=== PATIENT | male | born 1960 | race Caucasian/White ===

== ENCOUNTER 2020-07-24 09:40 | Outpatient (CLI) | payer BC, SELFPAY ==
--- NOTE | ~2020-07-24 | XR_ITS ---
EXAMINATION: XR thoracic spine 3V DATE: 07/24/2020 10:23 INDICATION: Muscle spasm of the back, acute onset TECHNIQUE: AP, lateral and lateral swimmer's views of the thoracic spine were obtained. COMPARISON: None. FINDINGS: There is no fracture, dislocation, or subluxation. The vertebral body heights are normal. T here is mild loss of intervertebral disc space height at multiple levels in the thoracic spine. There are bridging osteophytes at multiple levels in the spine, consistent with diffuse idiopathic skeleta l hyperostosis (DISH). Surgical clips in the right upper quadrant are likely from prior cholecystecto my. IMPRESSION: 1. Mild thoracic spondylosis and diffuse idiopathic skeletal hyperostosis without acute findings. Reviewed, dictated and finalized at location A. RVISOR TRUST ACCOUNTS IMPRESSION: 1. Mild thoracic spondylosis and diffuse idiopathic skeletal hyperostosis witho ut acute findings.
--- NOTE | ~2020-07-24 | XR_ITS ---
EXAMINATION: XR abdomen/kub 1V INDICATION: Unspecified abdominal pain, left flank pain TECHNIQUE: Supine views of the abdomen were obtained on 2 radiographs. COMPARISON: 12/23/2010 FINDINGS: There is lumbar levocurvature. The bowel gas pattern is normal. No dilated loops of bowel a re evident. There is no evidence of free intraperitoneal gas. A phlebolith is noted in the left pelvi s. Surgical clips in the right upper quadrant are likely from prior cholecystectomy. IMPRESSION: 1. Unremarkable abdominal radiographs. Reviewed, dictated and finalized at location A. RNATIONAL NURSE
--- NOTE | ~2020-07-24 | XR_ITS ---
EXAMINATION: XR lumbar spine 2-3V DATE: 07/24/2020 10:24 INDICATION: Muscle spasm of the back TECHNIQUE: Anteroposterior and lateral views of the lumbar spine, and cone-down lateral view of the l umbosacral junction were obtained. COMPARISON: 03/25/2016 FINDINGS: There is lumbar levocurvature. There are 5 mm of stable anterolisthesis of L5 on S1.. There is no fracture. The vertebral body heights are maintained. There is mild loss of intervertebral disc space height throughout the lumbar spine. Small degenerative osteophytes project from the anterior e ndplates of multiple vertebral bodies. Mild facet osteoarthritis is present in the lower lumbar spine . Surgical clips in the right upper quadrant are likely from prior cholecystectomy. IMPRESSION: 1. Mild lumbar spondylosis without acute findings or significant interval change. Reviewed, dictated and finalized at location A. R RESOURCES ENGINEER IMPRESSION: 1. Mild lumbar spondylosis without acute findings or significant interval adonay hood
--- NOTE | ~2020-07-24 | XR_ITS ---
EXAMINATION: XR pelvis 1-2V INDICATION: Muscle spasm of the back and left pelvic pain TECHNIQUE: AP view of the pelvis is obtained. COMPARISON: 12/23/2010 FINDINGS: Bone alignment is normal. There is no fracture. Mild osteoarthritis is noted in the hips. T here are phleboliths of the pelvis. The bowel gas pattern is normal. IMPRESSION: 1. No radiographic correlate for the patient's symptoms. Reviewed, dictated and finalized at location A. TRANSMISSION SPECIALIST
[2020-07-24 10:14] LABS: Add Urine Microscopic? YES; Appearance Urine Clear (Clear); Bilirubin Urine Negative (Negative); Blood Urine Negative (Negative); Color Urine Yellow (Yellow); Glucose Urine UA Negative (Negative); Ketones Urine Negative (Negative); Leukocyte Esterase Ur Negative LEU/UL (NEGATIVE); Mucus Urine Few /lpf; Nitrate Urine Negative (Negative); Protein Urine Negative (Negative); RBC Urine 0-2 /hpf (0-2); Specific Grav Ur 1.015 (1.001-1.035); Squamous Epithelial Cell Urine Rare /hpf (Few); WBC Urine 0-3 /hpf (0-3)
== END 2020-07-24 09:41 | disposition home or self-care (01) ==
LOC: ANHLAB 09:43
PROVIDERS: PCP Internal Medicine; Visit Provider Internal Medicine
DX: M62.830 Muscle spasm of back (principal); R10.9 Unspecified abdominal pain; Z51.81 Encounter for therapeutic drug level monitoring; Z79.899 Other long term (current) drug therapy; M47.817 Spondylosis without myelopathy or radiculopathy, lumbosacral region; M47.815 Spondylosis without myelopathy or radiculopathy, thoracolumbar region
CPT/HCPCS: 72072; 72100; 72170; 74018; 81001

== ENCOUNTER → 2021-02-02 14:30 | Outpatient (REF) | payer BC, SELFPAY | LOC: ANHLAB 14:30 | PROVIDERS: PCP Internal Medicine; Visit Provider Nurse Practitioner | DX: L82.1 Other seborrheic keratosis (principal) | CPT/HCPCS: 88305 ==

== ENCOUNTER 2021-07-16 14:06 | Outpatient (CLI) | payer BC, SELFPAY ==
[2021-07-16 14:48] LABS: Anion Gap 4 mmol/L (8-16); Blood Urea Nitrogen 9 mg/dL (9-20); Calcium 8.6 mg/dL (8.4-10.2); Carbon Dioxide 30 mmol/L (22-30); Chloride 102 mmol/L (98-107); Estimated Glomerular Filt Rate > 60; Glucose 104 mg/dL (65-110); Potassium 4.2 mmol/L (3.4-5.0); Sodium 136 mmol/L (137-145)
== END 2021-07-16 14:07 | disposition home or self-care (01) ==
LOC: ANHLAB 14:08
PROVIDERS: PCP Internal Medicine; Visit Provider Internal Medicine
DX: R60.0 Localized edema (principal); I10 Essential (primary) hypertension
CPT/HCPCS: 36415; 80048

== ENCOUNTER 2021-08-26 07:32 | Outpatient (RCR) | payer BC, SELFPAY ==
[2021-08-19 13:45] VITALS: BMI 46.2
== END 2021-11-02 08:08 | disposition home or self-care (01) ==
LOC: ANHWOC 07:32
PROVIDERS: PCP Internal Medicine; Visit Provider Internal Medicine
DX: L97.909 Non-pressure chronic ulcer of unspecified part of unspecified lower leg with unspecified severity (principal)
CPT/HCPCS: 99211; 99212; G0463

== ENCOUNTER 2021-09-25 08:32 | Outpatient (CLI) | payer BC, SELFPAY ==
--- NOTE | ~2021-09-25 | MR_ITS ---
EXAMINATION: MR lumbar spine wo con DATE: 09/25/2021 09:33 INDICATION: Lumbago. Lumbar radiculopathy. TECHNIQUE: Magnetic resonance imaging (MRI) of the lumbar spine was performed without intravenous con trast. Sequences included sagittal T2-weighted FSE, sagittal T2-weighted FS FSE, sagittal T1-weighted FSE, and axial T2-weighted FSE. COMPARISON: Lumbar spine radiographs 07/24/2020 FINDINGS: There is 5 degrees levocurvature of thoracolumbar spine. There is 3 mm anterolisthesis of L 5 on S1. There is mild chronic anterior wedging of T12 and L1 vertebral bodies associated with Schmor l's nodes. There is mildly decreased disc height at L1-L2, L3-L4, and L4-L5. The distal spinal cord s ignal intensity is normal. The conus medullaris is at L1-L2. The following disc levels are specifical ly discussed: L1-L2: There is a small central extrusion. There is mild bilateral facet joint osteoarthritis. There is no neural foraminal stenosis. There is mild central canal stenosis. L2-L3: There is a left foraminal protrusion. There is mild bilateral facet joint osteoarthritis. Ther e is mild left neural foraminal stenosis. There is no central canal stenosis. L3-L4: The disc is bulging and has an annular fissure. There is mild bilateral facet joint osteoarthr itis. There is mild left neural foraminal stenosis. There is mild central canal stenosis. L4-L5: The disc is bulging and has an annular fissure. There is mild right and moderate left facet veena int osteoarthritis. There is mild bilateral neural foraminal stenosis. There is mild central canal st enosis. L5-S1: The disc is bulging and has an annular fissure. There is severe bilateral facet joint osteoart hritis. There is mild bilateral neural foraminal stenosis. There is mild central canal stenosis. IMPRESSION: 1. Mild lumbar spondylosis. Reviewed, dictated and finalized at location A. IMPRESSION: 1. Mild lumbar spondylosis.
== END 2021-09-25 08:33 | disposition home or self-care (01) ==
PROVIDERS: PCP Internal Medicine; Visit Provider Nurse Practitioner Family
DX: M47.27 Other spondylosis with radiculopathy, lumbosacral region (principal); M48.07 Spinal stenosis, lumbosacral region
CPT/HCPCS: 72148

== ENCOUNTER → 2021-11-19 09:06 | Outpatient (CLI) | payer BC, SELFPAY ==
--- NOTE | ~2021-11-19 | XR_ITS ---
EXAMINATION: XR thoracic spine 3V DATE: 11/19/2021 10:11 INDICATION: Thoracic back pain TECHNIQUE: AP, lateral and lateral swimmer's views of the thoracic spine were obtained. COMPARISON: 07/24/2020 FINDINGS: There are bridging osteophytes at multiple levels in the spine, consistent with diffuse idi opathic skeletal hyperostosis (DISH). There is unchanged mild loss of intervertebral disc space heigh t at multiple levels in the thoracic spine. The vertebral body heights and alignment are maintained. There is no fracture. Surgical clips in the right upper quadrant are likely from prior cholecystectom y. IMPRESSION: 1. Diffuse idiopathic skeletal hyperostosis and mild thoracic spondylosis without acute findings or s ignificant interval change. Reviewed, dictated and finalized at location B. IMPRESSION: 1. Diffuse idiopathic skeletal hyperostosis and mild thoracic spondylosis witho ut acute findings or significant interval change.
== END ==
PROVIDERS: PCP Internal Medicine; Visit Provider Nurse Practitioner Family
DX: M48.14 Ankylosing hyperostosis [Forestier], thoracic region (principal); M47.894 Other spondylosis, thoracic region
CPT/HCPCS: 72072

== ENCOUNTER → 2021-12-02 09:07 | Outpatient (CLI) | payer BC, SELFPAY ==
--- NOTE | ~2021-12-02 | MR_ITS ---
EXAMINATION: MR thoracic spine wo con DATE: 12/02/2021 09:43 INDICATION: Mid to low back pain. TECHNIQUE: Magnetic resonance imaging (MRI) of the thoracic spine was performed without intravenous c ontrast. Sagittal localizer T1-weighted FSE of the cervical spine was obtained. Thoracic spine sequen brandon included sagittal T2-weighted FSE, sagittal T1-weighted FSE, sagittal T2-weighted FS FSE, and axi al T2-weighted FSE. COMPARISON: Thoracic spine radiographs 11/19/2021 FINDINGS: There is 4 degrees dextrocurvature of thoracic spine. There is mild chronic anterior wedgin g of T11-L1 vertebral bodies, likely physiologic. There are Schmorl's nodes at multiple levels. Inter vertebral disc heights are normal. There are bridging endplate osteophytes at multiple levels in the spine, consistent with diffuse idiopathic skeletal hyperostosis (DISH). There is multilevel mild face t joint osteoarthritis. No neural foraminal stenosis. The discs do not extend beyond the endplate mar gins. No central canal stenosis. The spinal cord signal intensity is normal. IMPRESSION: 1. DISH. Reviewed, dictated and finalized at location A. IMPRESSION: 1. DISH.
== END ==
PROVIDERS: PCP Internal Medicine; Visit Provider Nurse Practitioner Family
DX: M47.814 Spondylosis without myelopathy or radiculopathy, thoracic region (principal); M48.14 Ankylosing hyperostosis [Forestier], thoracic region
CPT/HCPCS: 72146

== ENCOUNTER 2022-07-20 11:11 | Outpatient (CLI) | payer BC, SELFPAY ==
--- NOTE | ~2022-07-20 | CT_ITS ---
EXAMINATION: CT abdomen w con DATE: 07/20/2022 11:51 INDICATION: Abdominal bloating, pain, nausea and vomiting. TECHNIQUE: Computed tomography (CT) of the abdomen and pelvis was performed with 100 mL Omnipaque-350 intravenous contrast. Automated exposure control and iterative reconstruction technique were employe d. The dose-length product was 1238.63 mGy-cm. COMPARISON: 12/22/2010 FINDINGS: Minimal dependent atelectasis in the bilateral lower lobes. Heart size is normal. No pericardial or p leural effusion. Small sliding-type hiatal hernia. Cholecystectomy clips at the gallbladder fossa. Li scott, spleen, pancreas, bilateral adrenal glands and left kidney are normal. One-2 mm parenchymal ston e at the lower pole of the right kidney. No hydronephrosis. Normal appendix. No bowel obstruction or abnormal bowel wall thickening. There is subtle mesenteric edema and hyperemia of the right direct ex tending to the small bowel primarily in the left abdomen. There are numerous likely reactive normal-s ized mesenteric lymph nodes which are more notable for number than size. No pathologically enlarged a bdominal lymphadenopathy. Mild thoracolumbar levocurvature with mild to moderate spondylosis. There a re bridging osteophytes at multiple levels in the spine, consistent with diffuse idiopathic skeletal hyperostosis (DISH). IMPRESSION: 1. Nonspecific subtle mesenteric edema, hyperemia of the small bowel vasa recta in the left abdomen a nd suspicion likely reactive mild mesenteric lymphadenopathy suspicious for an enteritis. 2. Small sliding-type hiatal hernia. 2. Nonobstructing 1-2 mm stone at the lower pole of the right kidney. Reviewed, dictated and finalized at location A. CIATE PROFESSOR OF LITERATURE IMPRESSION: 1. Nonspecific subtle mesenteric edema, hyperemia of the small bowel vasa recta in the left abdomen and suspicion likely reactive mild mesenteric lymphadenopa thy suspicious for an enteritis. 2. Small sliding-type hiatal hernia. 2. Nonobstructing 1-2 mm stone at the lower pole of the right kidney.
[2022-07-20 11:39] LABS: Estimated Glomerular Filt Rate > 60
[2022-07-20 11:40] LABS: Alanine Aminotransferase 28 U/L (6-50); Albumin Level 3.6 g/dL (3.5-5.1); Alkaline Phosphatase 93 U/L (38-126); Amylase 53 U/L (30-110); Anion Gap 5 mmol/L (8-16); Aspartate Amino Transferase 24 U/L (17-59); Bilirubin,Total 1.3 mg/dL (0.2-1.3); Blood Urea Nitrogen 12 mg/dL (9-20); Calcium 8.7 mg/dL (8.4-10.2); Carbon Dioxide 30 mmol/L (22-30); Chloride 99 mmol/L (98-107); Estimated Glomerular Filt Rate > 60; Glucose 100 mg/dL (65-110); Lipase 35 U/L (23-300); Potassium 3.9 mmol/L (3.4-5.0); Sodium 134 mmol/L (137-145)
== END 2022-07-20 11:12 | disposition home or self-care (01) ==
PROVIDERS: PCP Internal Medicine; Visit Provider Internal Medicine
DX: R10.9 Unspecified abdominal pain (principal); R11.2 Nausea with vomiting, unspecified; Z87.19 Personal history of other diseases of the digestive system; K44.9 Diaphragmatic hernia without obstruction or gangrene; N20.0 Calculus of kidney; R60.9 Edema, unspecified; R11.10 Vomiting, unspecified
CPT/HCPCS: 36415; 74160; 80053; 82150; 83690; Q9967

== ENCOUNTER 2022-10-14 11:44 | Observation (INO) | payer BC, SELFPAY ==
[2022-10-14] VITALS (27 sets, daily range): BP systolic 115–148; BP diastolic 62–84; PULSE 64–85; RESP 6–19; TEMP 36.3–36.4; O2SAT 94–100; BMI 43.8
--- NOTE | ~2022-10-14 | XR_ITS ---
EXAMINATION: XR chest 1V DATE: 10/14/2022 12:24 INDICATION: Facial weakness. TECHNIQUE: A single frontal view of the chest was obtained. COMPARISON: CT abdomen 07/20/2022 FINDINGS: The chest demonstrates clear lungs without pneumonia, pleural effusion, or pneumothorax. Th e heart size is normal. IMPRESSION: 1. No acute cardiopulmonary disease. Reviewed, dictated and finalized at location A.
--- NOTE | ~2022-10-14 | CT_ITS ---
EXAMINATION: CT brain wo con DATE: 10/14/2022 12:18 INDICATION: Left facial weakness. TECHNIQUE: Computed tomography (CT) of the head was performed without intravenous contrast. The mA wa s adjusted according to patient size. Iterative reconstruction technique was employed. The dose-lengt h product was 605.33 mGy-cm. COMPARISON: None FINDINGS: There are scattered areas of low attenuation in the cerebral white matter. There is no intr acranial hemorrhage, acute infarction, or abnormal intracranial mass lesion. The ventricles are wade l in size. There is mild mucosal thickening in the paranasal sinuses. The orbits are normal. The mast oid air cells are normal. IMPRESSION: 1. Mild nonspecific cerebral white matter disease, which likely represents chronic small vessel ische juan antonio disease. Reviewed, dictated and finalized at location A. IMPRESSION: 1. Mild nonspecific cerebral white matter disease, which likely represents respiratory support technician patti small vessel ischemic disease.
--- NOTE | ~2022-10-14 | MR_ITS ---
EXAMINATION: MR brain/brain stem wo/w con DATE: 10/14/2022 17:36 INDICATION: Left-sided facial droop TECHNIQUE: Magnetic resonance imaging (MRI) of the brain and brainstem was performed without and with the mL Multihance intravenous contrast. Sequences included sagittal and axial T1-weighted SE, axial diffusion-weighted FS SE, axial T2*-weighted GRE, axial T2-weighted FLAIR, and axial T2-weighted FSE. Postcontrast axial and coronal T1-weighted SE was obtained. Apparent diffusion coefficient (ADC) map s were created. COMPARISON: Head CT dated 10/14/2022 FINDINGS: There are no areas of restricted diffusion to suggest acute infarction. No intracranial hemorrhage or abnormal intracranial mass lesion. There are a few scattered areas of nonspecific increased T2-weigh suzette signal intensity in the cerebral white matter, predominantly involving the deep and periventricul ar white matter which is within normal limits for age. There are no intraparenchymal signal abnormali ties seen on the other pulse sequences. The ventricles are symmetric and normal in size. There are no abnormal extra-axial fluid collections. Flow voids are seen in the cerebral arteries on the T2-weigh suzette sequences consistent with their expected patency. Visualized orbits and soft tissues are unremark able. Small mucous retention cyst in the left maxillary and right sphenoid sinuses. There are no area s of abnormal enhancement on the post contrast images. IMPRESSION: 1. Normal for age brain. No acute intracranial process or abnormally enhancing brain lesions. Reviewed, dictated and finalized at location A.
--- NOTE | 2022-10-14 12:01 | ECG_ITS ---
Measurements Intervals [place] Rate: 70 P: 8 MO: 206 QRS: 1 QRSD: 104 T: 39 QT: 399 QTc: 433 Interpretive Statements SINUS RHYTHM NO PREVIOUS ECG AVAILABLE FOR COMPARISON Electronically Signed On 10-14-2022 15:28:27 CDT by Jair Reinoso M.D.
--- NOTE | 2022-10-14 12:06 | ED.NEUROSD ---
HPI - Neuro Symptoms/Deficit General Chief Complaint: Neuro Symptoms/Deficit Stated Complaint: left side facial numbness started last night Time Seen by Provider: 10/14/22 12:02 History of Present Illness HPI Narrative: Patient is a 61-year-old male with a history of hypertension presenting with left-sided facial droop. Patient states that since last night he noticed some numbness on the left side of his mouth. States that it looked like it was drooping slightly while he was shaving last night. This morning he got up and noticed that his smile was not as high on the left. He initially ignored it but it continued so he called his doctor who advised that he come in for evaluation. He denies numbness or weakness anywhere else. No vision changes or speech changes. No difficulty with ambulation. Denies pain anywhere. Related Data Home Medications Medication Instructions Recorded Confirmed acetaminophen 325 mg capsule 325 mg PO Q6H PRN Pain 07/19/19 10/14/22 omega-3 fatty acids 1,000 mg 1,000 mg PO DAILY 07/19/19 10/14/22 capsule (Fish Oil Concentrate) cholecalciferol (vitamin D3) 25 5,000 unit PO DAILY 03/06/20 10/14/22 mcg (1,000 unit) capsule ibuprofen 200 mg tablet 200 mg PO Q6H PRN Pain 03/06/20 10/14/22 omeprazole 20 mg capsule,delayed 20 mg PO DAILY 07/24/20 10/14/22 release bumetanide 1 mg tablet 1 mg PO DAILY 10/14/22 10/14/22 cyclobenzaprine 10 mg tablet 10 mg PO HS 10/14/22 10/14/22 diphenhydramine HCl 25 mg capsule 25 mg PO TID PRN Itching 10/14/22 10/14/22 (Benadryl) gabapentin 300 mg capsule 300 mg PO TID 10/14/22 10/14/22 potassium chloride 10 mEq 10 meq PO DAILY 10/14/22 10/14/22 capsule,extended release telmisartan 80 mg tablet 80 mg PO DAILY 10/14/22 10/14/22 Allergies Allergy/AdvReac Type Severity Reaction Status Date / Time calamine Allergy Intermediate Hives Verified 10/14/22 16:00 clindamycin Allergy Intermediate Hives Verified 10/14/22 16:00 niacin Allergy Unknown Rash Verified 10/14/22 11:44 lisinopril AdvReac Intermediate Hives Verified 10/14/22 11:44 adhesive tape AdvReac Mild Hives Verified 10/14/22 16:00 Review of Systems Review of Systems: All systems reviewed & are unremarkable except as noted in HPI and below PMFSH Past Medical History Medical History Abdominal cramping Acute pancreatitis Back spasm Benign essential hypertension Bloating BMI 39.0-39.9,adult BMI 40.0-44.9, adult Cellulitis of left lower extremity Chronic back pain Colon polyps Dermatographism Eczema Edema Encounter for preventive health examination Encounter for routine adult health examination without abnormal findings Encounter for special screening examination for neoplasm of prostate Family history of prostate cancer FHx: colon cancer Follow up GERD (gastroesophageal reflux disease) History of angiotensin converting enzyme inhibitor (ANKIT-I) allergy History of skin cancer Hx of pancreatitis Intermittent diarrhea Left flank pain Lymphedema Nausea and vomiting Numbness of both lower extremities On shelter drug therapy Onychomycosis LAWRENCE on CPAP Other specified abnormal findings of blood chemistry Pedal edema Periumbilical pain Plantar wart Plantar wart of left foot Positional vertigo Pre-diabetes Rectal bleeding Right elbow tendinitis Skin irritation Skin lesions Skin tag Superficial ulcer of lower extremity Venous insufficiency Vitamin D deficiency Surgical History Surgical History History of cholecystectomy History of removal of cyst Family History Family History Sibling Family history of seizure disorder Family history of rheumatic fever Family history of heart disease in male family member before age 55 Father Carcinoma of colon Malignant neoplasm of prostate Mother Family history of lung cancer Social
[2022-10-14 12:08] LABS: Glucose Point of Care 108 mg/dl (65-105)
[2022-10-14 12:22] LABS: Basophils Percent Auto 0.5 % (0.2-1.2); Eosinophils Absolute Auto 0.2 K/mm3 (0-0.3); Eosinophils Percent Auto 2.6 % (0-4.4); Hematocrit 44.9 % (42.0-52.0); Hemoglobin 15.3 g/dL (14.0-18.0); Immature Granulocyte Absolute 0.03 K/mm3 (0.00-0.031); Immature Granulocyte Percent A 0.4 % (0-0.5); Lymphocytes Absolute Auto 2.49 K/mm3 (0.9-3.2); Mean Corpuscular HGB Conc 34.1 g/dl (32-36); Mean Corpuscular Hemoglobin 30.7 pg (26-34); Mean Corpuscular Volume 90.2 fl (80-100); Mean Platelet Volume 8.9 fl (7.4-10.4); Monocytes Percent Auto 12.8 % (2.6-8.5); Neutrophils Absolute Auto 4.2 K/mm3 (1.3-6.7); Neutrophils Percent Auto 52.7 % (45.5-73.1); Platelet Count Result 313 k/mm3 (150-375); Red Blood Count 4.98 M/mm3 (4.6-6.20); Red Cell Distribution Width 13.2 % (11.5-14.5)
[2022-10-14 12:23] LABS: Alanine Aminotransferase 30 U/L (6-50); Albumin Level 4.2 g/dL (3.5-5.1); Alkaline Phosphatase 93 U/L (38-126); Anion Gap 8 mmol/L (8-16); Aspartate Amino Transferase 28 U/L (17-59); Bilirubin,Total 1.3 mg/dL (0.2-1.3); Blood Urea Nitrogen 14 mg/dL (9-20); Calcium 8.5 mg/dL (8.4-10.2); Carbon Dioxide 28 mmol/L (22-30); Chloride 100 mmol/L (98-107); Estimated CRCL calculation 159 ml/min; Estimated Glomerular Filt Rate > 60; Glucose 112 mg/dL (65-110); Potassium 3.8 mmol/L (3.4-5.0); Sodium 136 mmol/L (137-145)
[2022-10-14 12:26] LABS: INR 1.1; Prothrombin Time 14.6 Seconds (11.1-14.7)
[2022-10-14 12:27] LABS: Partial Thromboplastin Time 27.3 SECONDS (22.3-36.8)
[2022-10-14 12:35] LABS: Troponin I < 0.012 ng/mL (0.000-0.034)
--- NOTE | 2022-10-14 15:34 | ADMGEN ---
This patient, Primo Tinoco, was admitted to [facility] Surg Room 328-01. Patient/family oriented to hospital policies and general routines including ID bracelet, bed and alarms, visiting hours, pain management, procedures, bathroom and other care routines, personal items, smoking policy, room service/diet, and visiting hours. Information on how to activate the Rapid Response Team has been discussed. Patient/Family are encouraged to report perceived risks to care and to ask questions if they do not understand what they are told or what they should do.
--- NOTE | 2022-10-14 18:59 | PM.IMHP ---
H&P: HPI History of Present Illness Date/Time: 10/14/22 18:59 Chief Complaint: neuro symptoms Narrative: this is a 61-year-old male patient with past medical history of hypertension. The patient came to the emergency room today with complaints of left facial droop. Within the patient notices last night when he was shaving. The patient continued to have numbness and tingling to the left side of his face and stated that he had somewhat of a lisp. The patient called his primary care doctor who recommended that the patient come to the emergency room. The patient has no focal weakness. He has had no prior history of any TIAs or CVAs. The patient is not on a daily aspirin. Head CT was read as a following Mild nonspecific cerebral white matter disease, which likely represents chronic small vessel ischemic disease. chest x-ray was read as no acute cardiopulmonary disease. Brain MRI was read as the followingNormal for age brain. No acute intracranial process or abnormally enhancing brain lesions. I spoke with the patient explained to him that office tested been negative so far. 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 The patient is being admitted to observation status on the date of service of 10/14/2022. Review of Systems Review of Systems: All systems reviewed & are unremarkable except as noted in HPI and below Constitutional: Constitutional: Reports as per HPI and Reports no additional constitutional complaints Eyes: Eyes: Reports as per HPI and Reports no additional eye complaints ENT: Reports system reviewed and no additional complaints, except as documented and Reports Normal hearing present Cardiovascular: Cardiovascular: Reports no additional cardiovascular complaints Respiratory: Respiratory: Reports no additional respiratory complaints and Reports no additional respiratory complaints Gastrointestinal: Gastrointestinal: Reports as per HPI and Reports no additional gastrointestinal complaints Musculoskeletal: Musculoskeletal: Reports no additional musculoskeletal complaints Integumentary/Breasts: Skin/Breast: Reports system reviewed and no additional complaints, except as docu and Reports as per HPI Neurologic: Reports system reviewed and no additional complaints, except as documented, Reports as per HPI and Reports Normal hearing present Psychiatric: Psychiatric: Reports no additional psychiatric complaints and Reports as per HPI Endocrine: Endocrine: Reports no additional endocrine complaints Hematologic/Lymphatic: Hematologic/Lymphatic: Reports no additional hematologic/lymphatic complaints Allergic/Immunologic: Allergic/Immunologic: Reports no additional allergic/immunologic complaints [facility] Past Medical History Medical History Abdominal cramping Acute pancreatitis Back spasm Benign essential hypertension Bloating BMI 39.0-39.9,adult BMI 40.0-44.9, adult Cellulitis of left lower extremity Chronic back pain Colon polyps Dermatographism Eczema Edema Encounter for preventive health examination Encounter for routine adult health examination without abnormal findings Encounter for special screening examination for neoplasm of prostate Family history of prostate cancer FHx: colon cancer Follow up GERD (gastroesophageal reflux disease) History of angiotensin converting enzyme inhibitor (ANKIT-I) allergy History of skin cancer Hx of pancreatitis Intermittent diarrhea Left flank pain Lymphedema Nausea and vomiting Numbness of both lower extremities On fpc drug therapy Onychomycosis LAWRENCE on CPAP Other specified abnormal findings of blood chemistry Pedal edema Periumbilical pain Plantar wart Plantar wart of left foot Positional vertigo Pre-diabetes Rectal bleeding Right elbow tendinitis Skin irritation Skin lesions Skin tag Superficial ulcer of lower extremity Venous ins
[2022-10-15] VITALS: PULSE 70
--- NOTE | 2022-10-15 | ECHO_ITS ---
Patient Info Name: Primo Tinoco Age: 61 years : 1960 Gender: Male Ht: 72 in Wt: 320 lbs BSA: 2.78 m2 HR: 77 bpm BP: 115 / 74 mmHg Heart Rhythm: Sinus Rhythm Technical Quality: Poor Exam Date: 10/15/2022 8:59 AM Exam Location: [facility] Patient Status: Inpatient Admit Date: 10/14/2022 Staff Ordering Physician: Lata Cruz NP Rn Medical Inpatient Services: [facility] [place] RDCS Attending Provider: Heri Silvestre MD Referring Physician: Nancy AELX; Exam Type: CA echo doppler color flow Study Info Indications - the neuro symptom Complete two-dimensional, color flow and Doppler transthoracic echocardiogram is performed. Reason for Poor Study: poor echocardiographic windows Summary 1. Complete two-dimensional, color flow and Doppler transthoracic echocardiogram is performed. 2. Left ventricular chamber dimension is normal. 3. Left ventricular systolic function is normal, estimated at 60-65%. 4. There is moderately increased left ventricular wall thickness. 5. The left ventricular diastolic function is grade I diastolic dysfunction. 6. Right ventricular systolic function is normal. 7. There is trace mitral valve regurgitation. 8. There is trace tricuspid valve regurgitation. Left Ventricle Left ventricular chamber dimension is normal. Left ventricular systolic function is normal, estimated at 60-65%. There is moderately increased left ventricular wall thickness. The left ventricular diastolic function is grade I diastolic dysfunction. Right Ventricle Right ventricular chamber dimension is normal. Right ventricular systolic function is normal. Left Atria Left atrial chamber dimension is normal. Right Atria Right atrial chamber dimension is normal. Atrial Septum Interatrial septum is not well visualized. Aortic Valve The aortic valve is not well visualized. There is no aortic valve stenosis. There is no aortic valve regurgitation. Pulmonic Valve The pulmonic valve is not well visualized. Mitral Valve There is trace mitral valve regurgitation. Tricuspid Valve There is trace tricuspid valve regurgitation. Pericardium/Pleural The pericardium appears epicardial fat pad. There is no pericardial effusion. Inferior Vena Cava Inferior vena cava is not well visualized. Aorta The aortic root size at the sinus of Valsalva is normal. Left Ventricular Outflow Tract Name Value Normal LVOT 2D LVOT Diameter 2.0 cm LVOT Doppler LVOT Peak Gradient 8 mmHg LVOT Mean Gradient 5 mmHg LVOT VTI 31 cm LVOT VTI/AV VTI Ratio 1.2 LVOT Stroke Volume 94 ml LVOT CO 7.5 l/min LVOT CI 2.7 l/min/m2 Pulmonic Valve Name Value Normal RVOT Doppler RVOT Peak Gradient 4 mmHg PV Doppler -----
[2022-10-15 04:00] VITALS: PULSE 77
[2022-10-15 06:00] VITALS: BP 117/71; PULSE 69; RESP 18; TEMP 36.3; O2SAT 99
[2022-10-15] MEDS: valACYclovir HCL 500 MG TABLET 1000 MG PO ×2 (06:02→13:11)
[2022-10-15 06:40] LABS: Basophils Percent Auto 0.4 % (0.2-1.2); Eosinophils Absolute Auto 0.1 K/mm3 (0-0.3); Eosinophils Percent Auto 1.8 % (0-4.4); Hematocrit 45.6 % (42.0-52.0); Hemoglobin 15.2 g/dL (14.0-18.0); Immature Granulocyte Absolute 0.02 K/mm3 (0.00-0.031); Immature Granulocyte Percent A 0.3 % (0-0.5); Lymphocytes Absolute Auto 2.44 K/mm3 (0.9-3.2); Lymphocytes Percent Auto 30.9 % (18.3-44.2); Mean Corpuscular HGB Conc 33.3 g/dl (32-36); Mean Corpuscular Hemoglobin 30.3 pg (26-34); Mean Corpuscular Volume 90.8 fl (80-100); Mean Platelet Volume 8.7 fl (7.4-10.4); Monocytes Absolute Auto 0.9 K/mm3 (0.1-0.6); Monocytes Percent Auto 11.5 % (2.6-8.5); Neutrophils Absolute Auto 4.4 K/mm3 (1.3-6.7); Neutrophils Percent Auto 55.1 % (45.5-73.1); Platelet Count Result 299 k/mm3 (150-375); Red Blood Count 5.02 M/mm3 (4.6-6.20); Red Cell Distribution Width 13.1 % (11.5-14.5); White Blood Count 7.9 K/mm3 (4.5-10.0)
[2022-10-15 06:46] LABS: Alanine Aminotransferase 30 U/L (6-50); Alkaline Phosphatase 89 U/L (38-126); Anion Gap 5 mmol/L (8-16); Aspartate Amino Transferase 29 U/L (17-59); Bilirubin,Total 1.5 mg/dL (0.2-1.3); Blood Urea Nitrogen 13 mg/dL (9-20); Calcium 8.6 mg/dL (8.4-10.2); Carbon Dioxide 32 mmol/L (22-30); Chloride 101 mmol/L (98-107); Estimated CRCL calculation 159 ml/min; Estimated Glomerular Filt Rate > 60; Glucose 91 mg/dL (65-110); Magnesium 2.3 mg/dL (1.6-2.3); Potassium 4.1 mmol/L (3.4-5.0); Sodium 138 mmol/L (137-145)
[2022-10-15 06:53] LABS: Lactic Acid Reflex 1.3 mmol/L (0.7-2.0)
[2022-10-15 07:55] LABS: Free T4 Free Thyroxine Reflex 1.16 ng/dL (0.78-2.19)
[2022-10-15 08:00] VITALS: PULSE 89
--- NOTE | 2022-10-15 09:24 | WPDNEURCNPN ---
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 Consult date: 10/15/22 HPI: Prmio Tinoco is a 61 year old male admitted to the hospital through the emergency room for the complaints of left-sided facial numbness of [id number] duration . Patient has ongoing history of hypertension and he reported that his face was numb on the left side and also drooping though initially ignored but his doctor advised him to come to the emergency room. Patient has been taking particularly gabapentin 300 mg 3 times a day in addition to the antihypertensive medication. Patient is also reportedly allergic to multiple medication as reviewed. He gave no history of alcohol intake or smoking. His initial vital signs in the emergency room were stable, CBC and BMP were not significant and initial CT scan of the head was negative psoas the x-ray of the chest he was admitted to the hospital for the possibility of the brainstem involvement versus the left sided facial palsy. Subsequent to the hospital admission he had an MRI of the brain which is negative for the stroke or any space-occupying lesion. ON LICENSE OF [facility] Past Medical History Medical History (Updated 10/15/22 @ 10:09 by Prieto Alexis MD) Abdominal cramping Acute pancreatitis Back spasm Benign essential hypertension Bloating BMI 39.0-39.9,adult BMI 40.0-44.9, adult Cellulitis of left lower extremity Chronic back pain Colon polyps Dermatographism Eczema Edema Encounter for preventive health examination Encounter for routine adult health examination without abnormal findings Encounter for special screening examination for neoplasm of prostate Family history of prostate cancer FHx: colon cancer Follow up GERD (gastroesophageal reflux disease) History of angiotensin converting enzyme inhibitor (ANKIT-I) allergy History of skin cancer Hx of pancreatitis Intermittent diarrhea Left flank pain Lymphedema Nausea and vomiting Numbness of both lower extremities On half-way drug therapy Onychomycosis LAWRENCE on CPAP Other specified abnormal findings of blood chemistry Pedal edema Periumbilical pain Plantar wart Plantar wart of left foot Positional vertigo Pre-diabetes Rectal bleeding Right elbow tendinitis Skin irritation Skin lesions Skin tag Superficial ulcer of lower extremity Venous insufficiency Vitamin D deficiency Surgical History Surgical History (Updated 10/15/22 @ 02:47 by Lata Cruz NP) H/O arthroscopic knee surgery H/O colonoscopy with polypectomy H/O local excision of skin lesion History of cholecystectomy History of removal of cyst History of tonsillectomy and adenoidectomy Family History Family History Sibling Family history of seizure disorder Family history of rheumatic fever Family history of heart disease in male family member before age 55 Father Carcinoma of colon Malignant neoplasm of prostate Mother Family history of lung cancer Social History Social History (Updated 10/15/22 @ 02:48 by Lata Cruz NP) Social History: the patient lives with his brother. He is single and has not had any children. The patient worked for the [employer]. Code status full code Smoking status: Never smoker Second hand tobacco smoke exposure: No Alcohol intake: never Substance use: never Lack of Transportation: No Lack of Food: Never True Current Housing: I Have Housing Concerned About Future Housing: No Difficulty Paying Gas/Electric Bills: No Difficulty Paying for Meds: No Currently Unemployed: No Education: Master's Degree or Hi
[2022-10-15 09:41] LABS: Total Triiodothyronine (T3) 2.14 NG/ML (0.97-1.69)
[2022-10-15] MEDS: CHOLECALCIFEROL 1,000 UNITS TABLET 5000 UNITS PO (09:43)
[2022-10-15] MEDS: predniSONE 20 MG TABLET 60 MG PO (09:43)
[2022-10-15] MEDS: ASPIRIN 81 MG CHEWABLE TABLET PO (09:43)
[2022-10-15] MEDS: BUMETANIDE 1 MG TABLET PO (09:43)
[2022-10-15] MEDS: POTASSIUM CHLORIDE 10 MEQ TABLET.ER PO (09:43)
[2022-10-15] MEDS: PANTOPRAZOLE 40 MG TABLET PO (09:44)
[2022-10-15] MEDS: TELMISARTAN 40 MG TABLET 80 MG PO (09:44)
[2022-10-15] MEDS: GABAPENTIN 300 MG CAPSULE PO ×2 (09:44→13:11)
[2022-10-15] MEDS: OMEGA 3 POLYUNSAT FATTY ACIDS 1 GM CAP PO (09:44)
--- NOTE | 2022-10-15 10:00 | PM.DS ---
DS: Admitting Diagnosis Discharge Date 10/15/22 1000 Admitting Diagnosis [place] Palsy DS: Discharge Diagnosis Discharge Diagnosis (1) Facial droop: Code(s): R29.810 - Facial weakness Status: Acute Assessment and Plan: Normal for age brain. No acute intracranial process or abnormally enhancing brain lesions. I discussed treatment for Og's palsy. I did order acyclovir and prednisone for the patient. Neurology has been consulted. The patient has no focal weakness. Continue prednisone for 5 days (2) BPH without urinary obstruction: Code(s): N40.0 - Benign prostatic hyperplasia without lower urinary tract symptoms Status: Acute Assessment and Plan: Continue with home medications. (3) Benign essential hypertension: Code(s): I10 - Essential (primary) hypertension Status: Acute Assessment and Plan: Continue with telmisartan and bumex (4) GERD (gastroesophageal reflux disease): Qualifiers: Esophagitis presence: without esophagitis Qualified Code(s): K21.9 - Gastro-esophageal reflux disease without esophagitis Code(s): K21.9 - Gastro-esophageal reflux disease without esophagitis Status: Acute Assessment and Plan: continue with omeprazole DS: Summary Hospital Course Hospital Course: Patient is a 61-year-old male with a past medical history of hypertension congestive heart failure, peripheral neuropathy who presented to the ED at [facility] with complaints of left facial droop. CT of the head was performed and showed mild nonspecific cerebral white matter disease which likely represents chronic small vessel ischemic disease. Chest x-ray was read as no acute cardiopulmonary disease. MRI of the brain shows normal aging brain. neurology was consulted and seen the patient. Everything is negative in appears to be Og's palsy at this time. Prednisone was initiated 60 mg for 7 days. Currently patient is stable. He still does have the left facial droop however his eye does never opening closed with no visual changes. He feels fine otherwise. He denies any her chest pain, shortness a breath, fevers, sweats, chills, nausea, vomiting, abdominal pain, constipation or diarrhea. Patient stable for discharge per labs and vital signs. Patient will be discharged home. Status at Discharge Functional status at discharge: independent ambulation Overall status at discharge: patient is progressing back to baseline Time Spent with Patient Time attestation: Total time spent providing and/or coordinating discharge services:48 minutes Time spent: Greater than 30 minutes Specific discharge activities: Diagnostic testing, chart review, developing a treatment plan, education, care coordination documentation, physical exam, result review Exam Narrative: General: well-nourished, well-appearing 75-year-old female, sitting up in bed, comfortable, NARD Neuro: awake, alert and oriented x4, speech clear, no focal neuro deficits noted HEENMT: normocephalic, atraumatic, EOMI, sclerae anicteric, moist oral mucosa, left facial droop, and left eye paralysis Respiratory: Clear to auscultation bilaterally without crackles, rhonchi or wheezes, nonlabored breathing Cardio: regular rate, regular rhythm with S1-S2 Abdomen: nondistended, normoactive bowel sounds, soft, nontender to palpation Extremities: no edema, erythema, or tenderness to palpation, DP pulses 2+ bilaterally Skin: no rashes or lesions, warm and dry Psych: appropriate mood and affect, judgment and insight intact DS: Data Data Completed and Pending Labs on day of discharge: Labs from last 24 hours 10/15/22 06:07 WBC 7.9 RBC 5.02 Hgb 15.2 Hct 45.6 MCV 90.8 MCH 30.3 MCHC 33.3 RDW 13.1 Plt Count 299 MPV 8.7 Immature Gran % (Auto) 0.3 Neut % (Auto) 55.1 Lymph % (Auto) 30.9 Lawrence % (Auto) 11.5 H Eos % (Auto) 1.8 Baso % (Auto) 0.4 Lymph # (Auto) 2.44 Lawrence # (Auto) 0
[2022-10-15 12:00] VITALS: PULSE 84
== END 2022-10-15 15:10 | disposition home or self-care (01) ==
LOC: ANHED 12:11 → ANH3MEDSUR 14:57
PROVIDERS: Emergency Medicine; Nurse Practitioner; Admitting Provider Chiropractor; Emergency Provider Emergency Medicine; PCP Internal Medicine; Visit Provider Chiropractor
DX: R29.810 Facial weakness (principal); R20.0 Anesthesia of skin; N40.0 Benign prostatic hyperplasia without lower urinary tract symptoms; I11.0 Hypertensive heart disease with heart failure; I50.9 Heart failure, unspecified; K21.9 Gastro-esophageal reflux disease without esophagitis; G89.29 Other chronic pain; M54.9 Dorsalgia, unspecified; G47.33 Obstructive sleep apnea (adult) (pediatric); E55.9 Vitamin D deficiency, unspecified; R90.82 White matter disease, unspecified; Z99.89 Dependence on other enabling machines and devices; Z79.1 Long term (current) use of non-steroidal anti-inflammatories (NSAID); Z79.899 Other long term (current) drug therapy
CPT/HCPCS: 36415; 70450; 70553; 71045; 80053; 82948; 83605; 83735; 84439; 84443; 84480; 84484; 85025; 85610; 85730; 93005; 93306; 99285; A9270; A9577; G0378; J7512

== ENCOUNTER 2023-06-29 09:12 | Outpatient (CLI) | payer BC, SELFPAY ==
--- NOTE | ~2023-06-29 | XR_ITS ---
Cervical Spine: AP, lateral, open-mouth views, with flexion, extension positioning Clinical History: Pain Findings: The normal lordotic curve is maintained. The vertebral bodies and posterior elements appea r intact. There is moderate degenerative disc narrowing at C5-C6 and C6-C7.. Pre-vertebral soft tissu es are unremarkable. Impression: Degenerative disc change at C5-C6 and C6-C7, as above. Reviewed, dictated and finalized at location M. MACY COORDINATOR Impression: Degenerative disc change at C5-C6 and C6-C7, as above.
== END 2023-06-29 09:13 | disposition home or self-care (01) ==
PROVIDERS: PCP Internal Medicine; Visit Provider Internal Medicine
DX: M53.82 Other specified dorsopathies, cervical region (principal); M50.322 Other cervical disc degeneration at C5-C6 level; M50.323 Other cervical disc degeneration at C6-C7 level
CPT/HCPCS: 72040

== ENCOUNTER 2023-07-15 12:43 | Outpatient (CLI) | payer BC, SELFPAY | END 2023-07-15 12:44 | disposition home or self-care (01) | PROVIDERS: PCP Internal Medicine; Visit Provider Internal Medicine | DX: H90.3 Sensorineural hearing loss, bilateral (principal) | CPT/HCPCS: 92557; 92567 ==

== ENCOUNTER 2023-11-08 15:25 | Outpatient (CLI) | payer BC, SELFPAY ==
--- NOTE | ~2023-11-08 | CT_ITS ---
CT abdomen pelvis w con Ordering provider: Logan Nielson MD History: 62 years Male with . R10.9 - Unspecified abdominal pain . Comparison: July 20, 2022 Technique: CT abdomen and pelvis with IV and without oral contrast. Automated exposure control and it erative reconstruction technique were employed. The dose-length product was 1713.66 mGy-cm. 100 mL Om nipaque 350 was given IV. Findings: VISUALIZED LOWER CHEST: Dependent atelectatic changes. UPPER ABDOMINAL ORGANS: Liver: Mild fat infiltration. Gallbladder: Status post cholecystectomy. Spleen: Normal. Stomach/duodenum: Small sliding hiatus hernia. Pancreas: Normal. Adrenals: Normal. Kidneys: Normal. PELVIC ORGANS: The bladder is normal. BOWEL AND MESENTERY: Colon: No evidence of diverticulitis. Normal appendix. Small Bowel: Normal. No obstruction. Peritoneum/mesentery: No free air or free fluid. No mesenteric lymphadenopathy. RETROPERITONEUM: Mild atheromatous disease of the abdominal aorta. No retroperitoneal lymphadenopat hy. MUSCULOSKELETAL: Superficial soft tissues: The superficial soft tissues are normal. Bones: Age appropriate degenerative changes of the spine. Bilateral sacroiliitis more prominent on th e left side. IMPRESSION: 1. No evidence of obstruction, diverticulitis or appendicitis. 2. Small sliding hiatus hernia. 3. Mild fat infiltration of the liver. Reviewed, dictated and finalized at location A.
[2023-11-08 16:42] LABS: Basophils Percent Auto 0.5 % (0.2-1.2); Eosinophils Absolute Auto 0.3 K/mm3 (0-0.3); Eosinophils Percent Auto 3.4 % (0-4.4); Hematocrit 43.2 % (42.0-52.0); Hemoglobin 14.7 g/dL (14.0-18.0); Immature Granulocyte Absolute 0.03 K/mm3 (0.00-0.031); Immature Granulocyte Percent A 0.4 % (0-0.5); Lymphocytes Absolute Auto 2.39 K/mm3 (0.9-3.2); Lymphocytes Percent Auto 29.9 % (18.3-44.2); Mean Corpuscular Hemoglobin 31.3 pg (26-34); Mean Corpuscular Volume 92.1 fl (80-100); Mean Platelet Volume 9.1 fl (7.4-10.4); Monocytes Percent Auto 11.9 % (2.6-8.5); Neutrophils Absolute Auto 4.3 K/mm3 (1.3-6.7); Neutrophils Percent Auto 53.9 % (45.5-73.1); Platelet Count Result 298 k/mm3 (150-375); Red Blood Count 4.69 M/mm3 (4.6-6.20); Red Cell Distribution Width 13.2 % (11.5-14.5)
[2023-11-08 16:51] LABS: Anion Gap 8 mmol/L (4-12); Blood Urea Nitrogen 11 mg/dL (9-20); Calcium 8.8 mg/dL (8.4-10.2); Carbon Dioxide 29 mmol/L (22-30); Chloride 99 mmol/L (98-107); Estimated Glomerular Filt Rate > 60; Glucose 106 mg/dL (65-110); Sodium 136 mmol/L (137-145)
== END 2023-11-08 15:26 | disposition home or self-care (01) ==
PROVIDERS: PCP Internal Medicine; Visit Provider Internal Medicine
DX: R10.819 Abdominal tenderness, unspecified site (principal); K44.9 Diaphragmatic hernia without obstruction or gangrene; K76.0 Fatty (change of) liver, not elsewhere classified
CPT/HCPCS: 36415; 74177; 80048; 85025; Q9967

== ENCOUNTER 2024-01-17 00:11 | Day surgery (SDC) | payer OTHER, SELFPAY ==
[2023-12-28 09:55] VITALS: BMI 43.4
[2024-01-17 10:33] VITALS: BP 117/79; PULSE 84; RESP 16; TEMP 36.6; O2SAT 84
[2024-01-17] MEDS: LACTATED RINGERS 1,000 ML 150 ML IV CONT (10:41)
--- NOTE | 2024-01-17 11:12 | PM.IMHP ---
H&P: HPI History of Present Illness Date/Time: 01/17/24 11:12 Chief Complaint: Family history of colon cancer Narrative: this is a 63-year-old man who presents for colonoscopy. His last colonoscopy was about 6 or 7 years ago. He has a family history of colon cancer in his father who was diagnosed in his 50s. He denies any hematochezia or melena. Review of Systems Review of Systems: All systems reviewed & are unremarkable except as noted in HPI and below Constitutional: Constitutional: Denies chills, Denies fever(s), Denies headache(s) and Denies weight loss Eyes: Eyes: Denies change in vision ENT: Denies dizziness, Denies headache(s), Denies neck mass and Denies throat swelling Cardiovascular: Cardiovascular: Denies chest pain, Denies lightheadedness and Denies dyspnea Respiratory: Respiratory: Denies cough, Denies dyspnea and Denies wheezing Gastrointestinal: Gastrointestinal: Denies abdominal pain, Denies change in bowel habits, Denies nausea and Denies vomiting Genitourinary: Genitourinary: Denies hematuria and Denies dysuria Musculoskeletal: Musculoskeletal: Reports as per HPI Integumentary/Breasts: Skin/Breast: Reports as per HPI Neurologic: Denies dizziness and Denies headache(s) Allergic/Immunologic: Allergic/Immunologic: Denies throat swelling and Denies wheezing PMFSH Past Medical History Medical History Abdominal cramping Acute pancreatitis Back spasm Og's palsy Benign essential hypertension Bloating BMI 39.0-39.9,adult BMI 40.0-44.9, adult Cellulitis of left lower extremity Cervicalgia Chronic back pain Colon polyps Dermatographism Eczema Edema Encounter for preventive health examination Encounter for routine adult health examination without abnormal findings Encounter for special screening examination for neoplasm of prostate Family history of prostate cancer FHx: colon cancer Follow up GERD (gastroesophageal reflux disease) History of angiotensin converting enzyme inhibitor (ANKIT-I) allergy History of skin cancer Hx of pancreatitis Intermittent diarrhea Left flank pain Lymphedema Nausea and vomiting Numbness of both lower extremities On nursing home drug therapy Onychomycosis LAWRENCE on CPAP Other specified abnormal findings of blood chemistry Pedal edema Periumbilical pain Plantar wart Plantar wart of left foot Positional vertigo Pre-diabetes Rectal bleeding Right elbow tendinitis Skin irritation Skin lesions Skin tag Superficial ulcer of lower extremity Venous insufficiency Vitamin D deficiency Surgical History Surgical History H/O arthroscopic knee surgery H/O colonoscopy with polypectomy H/O local excision of skin lesion History of cholecystectomy History of removal of cyst History of tonsillectomy and adenoidectomy Family History Family History Sibling Family history of seizure disorder Family history of rheumatic fever Family history of heart disease in male family member before age 55 Father Carcinoma of colon Malignant neoplasm of prostate Mother Family history of lung cancer Social History Social History Social History: the patient lives with his brother. He is single and has not had any children. The patient worked for the [employer]. Code status full code Smoking status: Never smoker Second hand tobacco smoke exposure: No Alcohol intake: current Substance use: never Substance use type: does not use Lack of Transportation: No Lack of Food: Never True Current Housing: I Have Housing Concerned About Future Housing: No Difficulty Paying Gas/Electric Bills: No Difficulty Paying for Meds: No Currently Unemployed: No Education: Master's Degree or Higher Difficulty w/ Childcare or Family Care: No Living arrang
--- NOTE | 2024-01-17 11:14 | WPDANESEPPF ---
Anes - Initial Pre Proc Eval Procedure: Operation Date: 01/17/24 11:30 Proposed Procedures p Screening Colonoscopy - Darnell Arora DO Date/Time: 01/17/24 11:14 Surgeon: Darnell Arora DO Pre Op Diagnosis: Neoplasm screening Patient Data Age: 63 Gender: M Height: 1.83 m Weight: 145.9 kg Last Vital Signs Temp 97.9 F 01/17/24 10:33 Pulse 84 01/17/24 10:33 Resp 16 01/17/24 10:33 BP 117/79 01/17/24 10:33 Pulse Ox 84 L 01/17/24 10:33 O2 Del Method Room Air 01/17/24 10:33 Allergies Allergy/AdvReac Type Severity Reaction Status Date / Time adhesive tape Allergy Intermediate Redness of Verified 01/17/24 10:29 Skin calamine Allergy Intermediate Hives Verified 01/17/24 10:29 clindamycin Allergy Intermediate Hives Verified 01/17/24 10:29 lisinopril Allergy Intermediate Hives Verified 01/17/24 10:29 niacin Allergy Intermediate Rash Verified 01/17/24 10:29 Home Medications Medication Instructions Recorded Confirmed Type acetaminophen 325 mg capsule 325 mg PO Q6H PRN Pain 07/19/19 01/17/24 History omega-3 fatty acids 1,000 mg 1,000 mg PO DAILY 07/19/19 01/17/24 History capsule (Fish Oil Concentrate) cholecalciferol (vitamin D3) 25 5,000 unit PO DAILY 03/06/20 01/17/24 History mcg (1,000 unit) capsule ibuprofen 200 mg tablet 200 mg PO Q6H PRN Pain 03/06/20 01/17/24 History omeprazole 20 mg capsule,delayed 20 mg PO DAILY 07/24/20 01/17/24 History release Probiotic 2 gummy BYMOUTH DAILY 02/07/23 01/17/24 History bumetanide 1 mg tablet See Rx Instructions .Route 12/27/23 01/17/24 Rx .COMPLEX #90 tabs cyclobenzaprine 10 mg tablet See Rx Instructions .Route 12/27/23 01/17/24 Rx .COMPLEX #30 tabs gabapentin 300 mg capsule See Rx Instructions .Route 12/27/23 01/17/24 Rx .COMPLEX #270 caps potassium chloride 10 mEq See Rx Instructions .Route 12/27/23 01/17/24 Rx capsule,extended release .COMPLEX #90 caps telmisartan 80 mg tablet See Rx Instructions .Route 12/27/23 01/17/24 Rx .COMPLEX #90 tabs ondansetron HCl 4 mg tablet 4 mg PO Q6H PRN Nausea #4 tabs 12/28/23 Rx Patient hx anesthesia problems: none Family hx anesthesia problems: none Results Review: All pre-operative results and documents have been reviewed as part of the pre-operative evaluation. [facility] Past Medical History Medical History Abdominal cramping Acute pancreatitis Back spasm Og's palsy Benign essential hypertension Bloating BMI 39.0-39.9,adult BMI 40.0-44.9, adult Cellulitis of left lower extremity Cervicalgia Chronic back pain Colon polyps Dermatographism Eczema Edema Encounter for preventive health examination Encounter for routine adult health examination without abnormal findings Encounter for special screening examination for neoplasm of prostate Family history of prostate cancer FHx: colon cancer Follow up GERD (gastroesophageal reflux disease) History of angiotensin converting enzyme inhibitor (ANKIT-I) allergy History of skin cancer Hx of pancreatitis Intermittent diarrhea Left flank pain Lymphedema Nausea and vomiting Numbness of both lower extremities 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 Onychomycosis LAWRENCE on CPAP Other specified abnormal findings of blood chemistry Pedal edema Periumbilical pain Plantar wart Plantar wart of left foot Positional vertigo Pre-diabetes Rectal bleeding Right elbow tendinitis Skin irritation Skin lesions Skin tag Superficial ulcer of lower extremity Venous insufficiency Vitamin D deficiency Surgical History Surgical History H/O arthroscopic knee surgery H/O colonoscopy with polypectomy H/O local excision of skin lesion History of cholecystectomy History of removal of cyst History of tonsillectomy and adenoidectomy Family History Family History Sibling Family history of
[2024-01-17 12:25] VITALS: BP 92/62; PULSE 75; RESP 21; O2SAT 100
[2024-01-17 12:35] VITALS: BP 109/67; PULSE 71; RESP 21; O2SAT 100
[2024-01-17 12:45] VITALS: BP 109/68; PULSE 68; RESP 17; O2SAT 98
== END 2024-01-17 12:55 | disposition home or self-care (01) ==
PROVIDERS: PCP Internal Medicine; Visit Provider Surgery
PROC: 0DJD8ZZ Inspection of Lower Intestinal Tract, Via Natural or Artificial Opening Endoscopic (ICD-10-PCS; CPT 45378; principal; 2024-01-17 11:30)
DX: Z12.11 Encounter for screening for malignant neoplasm of colon (principal); K57.30 Diverticulosis of large intestine without perforation or abscess without bleeding; Z80.0 Family history of malignant neoplasm of digestive organs; I10 Essential (primary) hypertension; K21.9 Gastro-esophageal reflux disease without esophagitis; G47.33 Obstructive sleep apnea (adult) (pediatric); E55.9 Vitamin D deficiency, unspecified
CPT/HCPCS: G0105; J2704; J7120

== ENCOUNTER 2024-06-25 15:36 | Outpatient (CLI) | payer OTHER, SELFPAY ==
--- NOTE | ~2024-06-25 | XR_ITS ---
Clinical Indication: Cough PA and lateral views of the chest: Comparison: 10/14/2022 Findings: The lungs are clear, without evidence of focal consolidation or pleural effusion. Cardiome diastinal silhouette is enlarged. Bones and soft tissues are unremarkable. Impression: Clear lungs. Cardiomegaly. Reviewed, dictated and finalized at location . BW ARCHITECT Impression: Clear lungs. Cardiomegaly.
--- OUTSIDE RECORDS SUMMARY | 2024-06-25 15:41 | XMS_ITS | Clinical Summary ---
Author Organization [facility] Address [address] [place] [address] Care Team Providers Care Home Decorator Name Role Phone Logan Nielson MD Primary Care Provider [phone] Medications LISINOPRIL 40 MG tabletIndicatio ns:Hypertension TAKE ONE TABLET EVERY MORNING. 30 tablet 5 11/22/2018 Active GABAPENTIN 300 MG capsuleIndicati ons:Peripheral neuropathy TAKE 1 CAPSULE BY MOUTH THREE TIMES A DAY 90 capsule 5 11/22/2018 Active Social History Tobacco Use Types Packs/Day Years Used Date Smoking Tobacco: Never Assessed Sex and Gender Information Value Date Recorded Sex Assigned at Not on file Legal Sex Male 11:15 PM FOOD SAFETY TECHNICIAN Gender Identity Not on file Sexual Orientation Not on file Last Filed Vital Signs Vital Sign Reading Time Taken Comments Blood Pressure 124/88 06/01/2018 10:05 AM FOOD SAFETY TECHNICIAN Pulse 64 06/01/2018 10:05 AM FOOD SAFETY TECHNICIAN Temperature - - Respiratory Rate - - Oxygen Saturation - - Inhaled Oxygen Concentration - - Weight 147 kg (324 lb) 06/01/2018 10:05 AM FOOD SAFETY TECHNICIAN Height 182.9 cm (6') 06/01/2018 10:05 AM FOOD SAFETY TECHNICIAN Body Mass Index 43.94 06/01/2018 10:05 AM FOOD SAFETY TECHNICIAN Plan of Treatment Health Maintenance Due Date Last Done Comments Colorectal Cancer Screening Colonoscopy (10 Years) 1958 Hepatitis C 1976 Pneumococcal Vaccine: 65+ Years (1 of 1 - PCV) 11/19/2023 COVID-19 Vaccine (2023-25 season) 2024 03/11/2022, 04/28/2021, 08/06/2020, Additional history exists Influenza Adult (#1) 2024 03/11/2022, 04/03/2021, 04/03/2020, Additional history exists DTaP, Tdap and Td Vaccines (2 - Td or Tdap) 06/01/2028 06/01/2018 RSV Immunization or 60+ Years (1 - 1-dose 75+ series) 2033 Zoster Vaccines Completed 07/15/2021, 05/15/2021 Meningococcal B Vaccine Aged Out No l onger eligible based on patient's age to complete this topic Meningococcal Vaccine Aged Out No kaylin thais eligible based on patient's age to complete this topic Pneumococcal Vaccine: Pediatrics (0 to 5 Years) and At-Risk Patients (6 to 64 Years) Aged Out No longer eligible based on patient's age to complete this topic RSV Immunizations Under 20 Months Aged Out No longer eligible based on patient's age to complete this topic Procedures Procedure Name Priority Date/Time Associated Diagnosis Comments COLONOSCOPY Routine FOOD SAFETY TECHNICIAN from Last 3 Months or Most Recently Relevant to Health Maintenance Results * Colonoscopy ( FOOD SAFETY TECHNICIAN) Narrative TOUCHWORKS TO EPIC CONVERSION - FOOD SAFETY TECHNICIAN Documented hx of procedure Procedure Note , Generic ConversionMD - 08/03/2018 Documented hx of procedure us Generic Conversion Md AIKEN GI PROCEDURE ORDERABLES Final Result TOUCHWORKS TO EPIC CONVERSION from Last 3 Months or Most Recently Relevant to Health Maintenance Insurance [facility] Care Teams Home Decorator Relationship Specialty Start Date End Date Logan Nielson MD [address] - [facility] [address] [place] [address] PCP - General INTERNAL MEDICINE 06/16/22
--- OUTSIDE RECORDS SUMMARY | 2024-06-25 15:41 | XMS_ITS | Clinical Summary ---
Author Organization [facility] Address [address], [facility] [address] [place] [address] Phone Care Team Providers Care Bow Stapler Name Role Phone Logan Nielson MD Primary Care Provider [phone] Allergies No known active allergies Medications polyethylene glycol (MIRALAX) Powder Please use entire 255 gram for colonoscopy prep as directed by office. 1 Bottle 8 Active lisinopril (PRINIVIL, ZESTRIL) 40 MG Tablet 8 Active Omeprazole 20 MG Tablet Delayed Response Take 1 Tab by mouth daily as needed. Active IBUPROFEN PO Take 200 mg by mouth as needed. Active Naproxen Sodium (ALEVE PO) Take 220 mg by mouth as needed. Active hydrocortisone (ANUSOL-HC) 2.5 % Cream Apply daily. Apply to rectum as directed. 1 Tube 8 Active Family History Medical History Relation Name Comments Cancer Father colon, prostate Cancer Maternal Aunt renal, Cancer Maternal Uncle throat Cancer Mother lung, Cancer Paternal Uncle lung and thro at Relation Name Status Comments Father Maternal Aunt Maternal Uncle Mother Paternal Uncle Social History Tobacco Use Types Packs/Day Years Used Date Smoking Tobacco: Never Smokeless Tobacco: Never Alcohol Use Standard Drinks/Week Comments Yes 0 (1 standard drink = 0.6 oz pur e alcohol) rarely Sex and Gender Information Value Date Recorded Sex Assigned at Not on file Legal Sex Male 7:07 PM CDT Gender Identity Not on file Sexual Orientation Not on file Occupation Industry Job Start Date Job End Date Works for the [employer] Not on file Not on file Not on file Last Filed Vital Signs Vital Sign Reading Time Taken Comments Blood Pressure 120/74 11/23/2017 12:23 PM CDT Pulse 69 11/23/2017 12:23 PM CDT Temperature 37 C (98.6 F) 11/23/2017 12:23 PM CDT Respiratory Rate 16 11/23/2017 12:23 PM CDT Oxygen Saturation 98% 11/23/2017 12:23 PM CDT Inhaled Oxygen Concentration - - Weight 146.1 kg (322 lb) 11/23/2017 9:39 AM CDT Height 188 cm (6' 2 ) 11/23/2017 9:39 AM CDT Body Mass Index 41.34 11/23/2017 9:39 AM CDT Plan of Treatment Health Maintenance Due Date Last Done Comments Hepatitis C Virus (HCV) Screening 1960 TdaP Immunization 1960 Cologuard 2008 Immunochemical Fecal Occult Blood 2008 Pneumococcal Immunization (5 0+ years) (1 of 1 - PCV) 2008 Zoster Immunization (1 of 2) 2008 PSA Discussion 2013 Colonoscopy 11/23/2022 11/23/2017 Colorectal Cancer Screening 11/23/2022 Influenza Immunization (#1) 2024 SARS-COV-2 Immunization ( - season) 2024 Respiratory Syncytial Virus (RSV) Immunization (Adult) (1 - 1-dose 75+ series) 2033 11/23/2017 Hepatitis B Immunization Aged Out No longer eligible based on patient's age to complete this topic Meningococcal Immunization (ACWY) Aged Out No longer eligible based on patient's age to complete this topic Pneumococcal Immunization Combined Aged Out No longer eligible based on patient's age to complete this topic Rotavirus Immunization Aged Out No lo nger eligible based on patient's age to complete this topic Care Teams Bow Stapler Relationship Specialty Start Date End Date Logan Nielson MD [address] [place] [address] PCP - General Internal Medicine 11/22/17
--- OUTSIDE RECORDS SUMMARY | 2024-06-25 15:41 | XMS_ITS | Encounter Summary ---
Author Organization [facility] - [facility] Address [address] [place] [address] Care Team Providers Care Director Of Sustainable Design Name Role Phone Logan Nielson MD Primary Care Provider [phone] Encounter Details Date Type Department Care Team (Late st Contact Info) Description 07/26/2022 Domain Apps Message [facility] Patient Accounts [address] [place] [address] [facility] Provider Uninsured Social History Tobacco Use Types Packs/Day Years Used Date Smoking Tobacco: Never Assessed Sex and Gender Information Value Date Recorded Sex Assigned at Not on file 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
--- OUTSIDE RECORDS SUMMARY | 2024-06-25 15:41 | XMS_ITS | Encounter Summary ---
Author Organization [facility] - [facility] Address [address] [place] [address] Care Team Providers Care Stain Wiper Name Role Phone Logan Nielson MD Primary Care Provider [phone] Encounter Details Date Type Department Care Team (Late st Contact Info) Description 08/02/2022 Houzz Message [facility] Patient Accounts [address] [place] [address] [facility] Provider Auto pay declined Social History Tobacco Use Types Packs/Day Years Used Date Smoking Tobacco: Never Assessed Sex and Gender Information Value Date Recorded Sex Assigned at Not on file 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
== END 2024-06-25 15:37 | disposition home or self-care (01) ==
PROVIDERS: PCP Internal Medicine; Visit Provider Internal Medicine
DX: I51.7 Cardiomegaly (principal)
CPT/HCPCS: 71046

== ENCOUNTER 2024-09-05 13:56 | Outpatient (CLI) | payer OTHER, SELFPAY ==
--- NOTE | 2024-09-05 15:09 | ECHO_ITS ---
Patient Info Name: Primo Tinoco Age: 63 years : 1960 Gender: Male Ht: 72 in Wt: 325 lbs BSA: 2.81 m2 HR: 63 bpm BP: 120 / 79 mmHg Heart Rhythm: Sinus Rhythm Technical Quality: Fair Exam Date: 09/05/2024 3:14 PM Exam Location: Echo Lab Patient Status: Outpatient Admit Date: 09/05/2024 Staff Ordering Physician: Logan Nielson MD Rn Women Services: Gina Dickinson RDCS Attending Provider: Logan Nielson MD Referring Physician: Naga VAZ; Exam Type: CA echo doppler color flow Study Info Indications R06.09 - Other forms of dyspnea Complete two-dimensional, color flow and Doppler transthoracic echocardiogram is performed. Summary 1. Complete two-dimensional, color flow and Doppler transthoracic echocardiogram is performed. 2. Left ventricular chamber dimension is normal. 3. Left ventricular systolic function is normal, estimated at 65-70%. 4. There is mild concentric increased left ventricular wall thickness. 5. The left ventricular diastolic function is grade I diastolic dysfunction. 6. E/e' 14 is mildly elevated. 7. Left atrial chamber dimension is mildly enlarged. 8. Right atrial chamber dimension is mildly enlarged. 9. There is mild aortic valve sclerosis. Left Ventricle E/e' 14 is mildly elevated. Left ventricular chamber dimension is normal. Left ventricular systolic function is normal, estimated at 65-70%. There is mild concentric increased left ventricular wall thickness. The left ventricular diastolic function is grade I diastolic dysfunction. Right Ventricle Right ventricular chamber dimension is normal. Right ventricular systolic function is normal. Left Atria Left atrial chamber dimension is mildly enlarged. Right Atria Right atrial chamber dimension is mildly enlarged. Aortic Valve The aortic valve is trileaflet. There is mild aortic valve sclerosis. There is no aortic valve stenosis. There is no aortic valve regurgitation. Pulmonic Valve There is no pulmonic regurgitation. Mitral Valve There is no mitral valve stenosis. There is no mitral valve regurgitation. Tricuspid Valve There is no tricuspid valve regurgitation. Pericardium/Pleural There is no pericardial effusion. Inferior Vena Cava Inferior vena cava is not well visualized. Aorta The aortic root size at the sinus of Valsalva is normal. Left Ventricular Outflow Tract Name Value Normal LVOT 2D LVOT Diameter 2.0 cm LVOT Doppler LVOT Peak Gradient 6 mmHg LVOT Mean Gradient 3 mmHg LVOT VTI 24 cm LVOT VTI/AV VTI Ratio 0.8 LVOT Stroke Volume 79 ml LVOT CO 5.0 l/min LVOT CI 1.8 l/min/m2 Pulmonic Valve Name Value Normal RVOT Doppler RVOT Peak Gradient 3 mmHg PV Doppler PV Peak Gradient 6 mmHg Mitral Valve Name Value Normal MV Doppler MV Decel [place] 515 cm/s2 MV PHT 64 ms MV Area (PHT) 3.4 cm2 4.0-5.0 MV Diastolic Function MV E Peak Velocity 114 cm/s MV A Peak Velocity 121 cm/s MV E/A 0.9 MV Decel Time 221 ms MV Annular TDI MV E/e' (Septal) 16.5 <=8.0 MV E/e' (Lateral) 13.5 <=8.0 MV E/e' (Average) 15.0 Tricuspid Valve Name Value Normal Estimated PAP/RSVP RA Pressure 5 mmHg <=5 Aorta Name Value Normal Ascending Aorta Ao Root Diameter (MM) 3.4 cm Ao Root Diam Index (MM) 1.2 cm/m2 Aortic Valve Name Value Normal AV Doppler AV Peak Velocity 147 cm/s AV Peak Gradient 9 mmHg AV Mean Gradient 4 mmHg AV VTI 29 cm AV Area (Cont Eq VTI) 2.7 cm2 >=3.0 AV Area (Cont Eq Tito) 2.7 cm2 AV Regurgitation 2D LVOT Area 3.3 cm2 Ventricles Name Value Normal LV Dimensions 2D/MM IVS Diastolic Thickness (2D) 1.2 cm 0.6-1.0 LVID Diastole (2D) 5.1 cm 4.2-5.8 LVIW Diastolic Thickness (2D) 1.2 cm 0.6-1.0 LVID Systole (2D) 2.8 cm 2.5-4.0 LVOT Diameter 2.0 cm LV Mass (2D Cubed) 233.49 g 88.00-224.00 LV Mass Index (2D Cubed) 83 g/m2 49-115 Relative Wall Thickness (2D) 0.46 LV Fractional Shortening/Ejection Fraction 2D/MM LV Fractional Shortening (2D) 45 % 25-43 LV EF (2D Teicholz) 76 % 52-72 LV Diastolic Volume (4C MOD) 79 ml LV EF (4C MOD) 75 % LV Diastolic Volume (2C MOD) 67 ml LV EF (2C MOD) 71 % LV Diastolic Volume (BP MOD) 75 ml 62-150 LV Diastolic Volume Index (BP MOD) 27 ml/m2 34-74 LV Systolic Volume (BP MOD) 19 ml 21-61 LV Systolic Volume Index (BP MOD) 7 ml/m2 11-31 LV EF (BP MOD) 74 % 52-72 LV Diastolic Length (4C) 8.5 cm LV Systolic Length (4C) 6.2 cm LV Stroke Volume (4C MOD) 59 ml Atria Name Value Normal LA Dimensions LA Dimension (MM) 6.1 cm 3.0-4.1 LA Volume (4C A-L) 82 ml LA Volume (BP A-L) 86 ml RA Dimensions RA Area (4C) 26.0 cm2 <=18.0 Report Signatures
--- OUTSIDE RECORDS SUMMARY | 2024-09-05 15:51 | XMS_ITS | Clinical Summary ---
Author Organization [facility] Address [address], [facility] [address] [place] [address] Phone Care Team Providers Care Hammer Mill Operator Name Role Phone Logan Nielson MD Primary Care Provider [phone] Allergies No known active allergies Medications polyethylene [...] Date Job End Date Works for the [employer] Not on file Not on file Not [...] age to complete this topic Care Teams Hammer Mill Operator Relationship Specialty Start Date End Date Logan Nielson MD PCP - General Internal Medicine 11/22/17
--- OUTSIDE RECORDS SUMMARY | 2024-09-05 15:51 | XMS_ITS | Clinical Summary ---
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 Gender Identity Not on file Sexual Orientation Not on file Last Filed Vital Signs Vital Sign Reading Time Taken Comments Blood Pressure 124/88 06/01/2018 10:05 AM AMPOULE INSPECTOR Pulse 64 06/01/2018 10:05 AM AMPOULE INSPECTOR Temperature - - Respiratory Rate - - Oxygen Saturation - - Inhaled Oxygen Concentration - - Weight 147 kg (324 lb) 06/01/2018 10:05 AM AMPOULE INSPECTOR Height 182.9 cm (6') 06/01/2018 10:05 AM AMPOULE INSPECTOR Body Mass Index 43.94 06/01/2018 10:05 AM AMPOULE INSPECTOR Plan of Treatment Health Maintenance Due Date Last Done Comments Colorectal Cancer Screening Colonoscopy (10 Years) 1960 Hepatitis C 1976 Pneumococcal Vaccine: 50+ Years (1 of 1 - PCV) 2008 COVID-19 Vaccine (2023- season) 2024 03/11/2022, 04/28/2021, 08/06/2020, Additional history exists DTaP, Tdap and Td [...] Priority Date/Time Associated Diagnosis Comments COLONOSCOPY Routine AMPOULE INSPECTOR from Last 3 Months or Most Recently Relevant to Health Maintenance Results * Colonoscopy ( AMPOULE INSPECTOR) Narrative TOUCHWORKS TO EPIC CONVERSION - AMPOULE INSPECTOR Documented hx of procedure Procedure Note Deandra Aiken MD - 08/03/2018 Documented hx of procedure Generic Conversion Md AIKEN GI PROCEDURE ORDERABLES Final Result TOUCHWORKS TO EPIC CONVERSION from Last 3 Months or Most Recently Relevant to Health Maintenance [place] [address] [place] [address] Care Teams Bandage Maker Relationship Specialty Start Date End Date Logan Nielson MD [address] - [facility] [address] [place] [address] PCP - General INTERNAL MEDICINE 06/16/22
--- OUTSIDE RECORDS SUMMARY | 2024-09-05 15:51 | XMS_ITS | Encounter Summary ---
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
--- OUTSIDE RECORDS SUMMARY | 2024-09-05 15:51 | XMS_ITS | Encounter Summary ---
Author Organization [facility] - [facility] Address [address] [place] [address] Care Team Providers Care Malariologist Name Role Phone Logan Nielson MD Primary Care Provider [phone] Encounter Details Date Type Department Care Team (Late st Contact Info) Description 08/02/2022 MicroVision Message [facility] Patient Accounts [address] [place] [address] [facility] Provider Auto pay declined Social History Tobacco Use Types Packs/Day Years Used Date Smoking Tobacco: Never Assessed Sex and Gender Information Value Date Recorded Sex Assigned at Not on file 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
== END 2024-09-05 13:57 | disposition home or self-care (01) ==
PROVIDERS: PCP Internal Medicine; Visit Provider Internal Medicine
DX: R93.1 Abnormal findings on diagnostic imaging of heart and coronary circulation (principal); I10 Essential (primary) hypertension; I51.7 Cardiomegaly
CPT/HCPCS: 93306; 94060; 94726; 94729

== ENCOUNTER 2025-03-22 09:06 | Outpatient (CLI) | payer OTHER, SELFPAY ==
--- NOTE | ~2025-03-22 | CT_ITS ---
EXAMINATION: CT sinus wo con COMPARISON: None HISTORY: J34.89 - Other specified disorders of nose and nasal sinuses TECHNIQUE: Axial images were obtained without IV contrast. Sagittal, coronal reconstruction images were obtained from the axial views. CT scan performed using dose optimization techniques including the following automated exposure control; adjustment of mA and/or kV; use of iterative reconstruction technique. Automatic exposure control was used to reduce radiation dose. Permanent radiation dose record is archived to PACS. FINDINGS: Visualized brain parenchyma and optic globes are unremarkable. Soft tissues demonstrate subcentimeter probable intraparotid lymph nodes. Nasal bones are intact. The anterior maxillary sinus parisi and zygomatic arches are intact. Temporomandibular joints, orbital floors and medial orbits are intact. The right frontal sinuses are diminutive. Minimal mucosal thickening in the ethmoidal air cells and the left maxillary sinus. The ostiomeatal complexes are patent. Nasal septum is in midline. No significant thickening of the turbinates on either the nasal cavities. Moderate mucosal thickening noted in the right sphenoid sinus. No osseous destruction or wall thickening is identified. IMPRESSION: Minimal sinusitis Reviewed, dictated and finalized at location P. MACHINE OPERATOR IMPRESSION: Minimal sinusitis
--- NOTE | ~2025-03-22 | CT_ITS ---
EXAM/PROCEDURE: CT soft tissue neck wo con HISTORY: R51.9 - Headache, unspecified COMPARISON: None available. TECHNIQUE: Noncontrast soft tissue neck CT performed. FINDINGS: Numerous nonpathologic size lymph nodes/nodules are present in the jugulodigastric, posterior triangle, occipital, and throughout the sternocleido mastoid region, extending to the supraclavicular region. No dominant mass or clearly pathologic sized lymph nodes identified. The retropharyngeal, parapharyngeal, and carotid spaces appear symmetric. The supraglottic soft tissues appear somewhat prominent with interspersed gaseous foci as seen on image 59 series 3. The epiglottis itself appears normal in size. Both parotid glands are mildly enlarged with no dominant mass. The submandibular glands appear mildly increased in attenuation but normal in size. Fossae of Rosenmuller appear fairly symmetric. No acute process seen in the visualized portions of the upper chest or intracranial contents. Dental amalgam or fillings obscure the oral cavity somewhat. 1.5 cm left lobe thyroid nodule in the midpole region. IMPRESSION: 1. Somewhat limited examination with noncontrast technique and moderately extensive artifact obscuring the oral cavity. 2. Numerous lymph nodes throughout the neck of uncertain significance. There are no clearly pathologic size lymph nodes, however the extent/number of lymph nodes is somewhat concerning for inflammatory, infectious or neoplastic process. 3. Irregular/abnormal appearance in the supraglottic region. Consider endoscopic evaluation. 4. Other findings as above. Reviewed, dictated and finalized at location A. AL CONSULTANT IMPRESSION: 1. Somewhat limited examination with noncontrast technique and moderately exten sive artifact obscuring the oral cavity. 2. Numerous lymph nodes throughout the neck of uncertain significance. There ar e no clearly pathologic size lymph nodes, however the extent/number of lymph no margot is somewhat concerning for inflammatory, infectious or neoplastic process. 3. Irregular/abnormal appearance in the supraglottic region. Consider endoscopi c evaluation. 4. Other findings as above.
--- OUTSIDE RECORDS SUMMARY | 2025-03-22 09:46 | XMS_ITS | Clinical Summary ---
Author Organization [facility] Address [address], [facility] [address] [place] [address] Phone Care Team Providers Care Utilization Review Specialist Name Role Phone Logan Nielson MD Primary Care Provider [phone] Allergies No known active allergies Medications polyethylene [...] Date Job End Date Works for the [employer] Not on file Not on file Not [...] 9:39 AM CDT Height 188 cm (6' 2) 11/23/2017 9:39 AM CDT Body Mass Index 41.34 11/23/2017 9:39 AM CDT Plan of Treatment Health Maintenance Due Date Last Done Comments Hepatitis C Virus (HCV) Screening 1960 TdaP Immunization 1960 Cologuard 11/19/2003 Immunochemical Fecal Occult Blood 11/19/2003 Pneumococcal Immunization (5 0+ years) (1 of 1 - PCV) 2008 Zoster Immunization (1 of 2) 2008 Colonoscopy 11/23/2022 11/23/2017 Colorectal Cancer Screening 11/23/2022 Influenza Immunization (#1) 2025 SARS-COV-2 Immunization ( - season) 2025 Respiratory Syncytial Virus (RSV) Immunization (Adult) (1 - 1-dose 75+ series) 2033 Hepatitis B Immunization Aged Out No longer eligible based on patient's age to complete this topic Human Papillomavirus (HPV) Immunization Aged Out No longer eligible b ased on patient's age to complete this topic Meningococcal Immunization (ACWY) Aged Out No longer eligible based on patient's age to complete this topic Rotavirus Immunization Aged Out No lo nger eligible based on patient's age to complete this topic Care Teams Utilization Review Specialist Relationship Specialty Start Date End Date Logan Nielson MD PCP - General Internal Medicine 11/22/17
--- OUTSIDE RECORDS SUMMARY | 2025-03-22 09:46 | XMS_ITS | Encounter Summary ---
Author Organization [facility] Address [address] [place] [address] Care Team Providers Care Publicity Consultant Name Role Phone Logan Nielson MD Primary Care Provider [phone] Encounter Details Date Type Department Care Team (Late st Contact Info) Description 07/26/2022 Hilosoft Message [facility] Patient Accounts [address] [place] [address] [facility] Provider Uninsured Social History Tobacco Use Types Packs/Day Years Used Date Smoking Tobacco: Never Assessed Sex and Gender Information Value Date Recorded Sex Assigned at Not on file 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
--- OUTSIDE RECORDS SUMMARY | 2025-03-22 09:46 | XMS_ITS | Clinical Summary ---
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 Gender Identity Not on file Sexual Orientation Not on file Last Filed Vital Signs Vital Sign Reading Time Taken Comments Blood Pressure 124/88 06/01/2018 10:05 AM ROLLER HELPER Pulse 64 06/01/2018 10:05 AM ROLLER HELPER Temperature - - Respiratory Rate - - Oxygen Saturation - - Inhaled Oxygen Concentration - - Weight 147 kg (324 lb) 06/01/2018 10:05 AM ROLLER HELPER Height 182.9 cm (6') 06/01/2018 10:05 AM ROLLER HELPER Body Mass Index 43.94 06/01/2018 10:05 AM ROLLER HELPER Plan of Treatment Health Maintenance Due Date Last Done Comments Colorectal Cancer Screening Colonoscopy (10 Years) 1960 Hepatitis C 1976 Pneumococcal Vaccine: 50+ Years (1 of 1 - PCV) 2008 COVID-19 Vaccine (2024- season) 2025 03/11/2022, 04/28/2021, 08/06/2020, Additional history exists Influenza Adult (#1) 2025 03/11/2022, 04/03/2021, 04/03/2020, Additional history exists DTaP, Tdap and Td Vaccines (2 - Td or Tdap) 06/01/2028 06/01/2018 RSV Immunization or 60+ Years (1 - 1-dose 75+ series) 2033 Zoster Vaccines Completed 07/15/2021, 05/15/2021 Hepatitis A Vaccines Aged Out No long er eligible based on patient's age to complete this topic Meningococcal B Vaccine Aged Out No l onger eligible based on patient's age to complete this topic Meningococcal Vaccine Aged Out No kaylin thasi eligible based on patient's age to complete this topic RSV Immunizations Under 20 Months Aged Out No longer eligible based on patient's age to complete this topic Procedures Procedure Name Priority Date/Time Associated Diagnosis Comments COLONOSCOPY Routine ROLLER HELPER from Last 3 Months or Most Recently Relevant to Health Maintenance Results * Colonoscopy ( ROLLER HELPER) Narrative TOUCHWORKS TO EPIC CONVERSION - ROLLER HELPER Documented hx of procedure Procedure Note Deandra Aiken MD - 08/03/2018 Documented hx of procedure us Generic Conversion Md AIKEN GI PROCEDURE ORDERABLES Final Result TOUCHWORKS TO EPIC CONVERSION from Last 3 Months or Most Recently Relevant to Health Maintenance Insurance [facility] Care Teams Chair Springer Relationship Specialty Start Date End Date Logan Nielson MD [address] [address] PCP - General INTERNAL MEDICINE 06/16/22
--- OUTSIDE RECORDS SUMMARY | 2025-03-22 09:46 | XMS_ITS | Encounter Summary ---
Author Organization [facility] Address [address] [place] [address] Care Team Providers Care Grape Grower Name Role Phone oLgan Nielson MD Primary Care Provider [phone] Encounter Details Date Type Department Care Team (Late st Contact Info) Description 08/02/2022 WappZapp Message [facility] Patient Accounts [address] [place] [address] [facility] Provider Auto pay declined Social History Tobacco Use Types Packs/Day Years Used Date Smoking Tobacco: Never Assessed Sex and Gender Information Value Date Recorded Sex Assigned at Not on file 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
== END 2025-03-22 09:07 | disposition home or self-care (01) ==
PROVIDERS: PCP Internal Medicine; Visit Provider Internal Medicine
DX: J34.89 Other specified disorders of nose and nasal sinuses (principal); R51.9 Headache, unspecified
CPT/HCPCS: 70486; 70490

== ENCOUNTER 2025-04-02 03:46 | Emergency (ER) | payer OTHER, SELFPAY ==
[2025-04-02] VITALS (8 sets, daily range): BP systolic 133–159; BP diastolic 72–90; PULSE 62–72; RESP 12–18; TEMP 36.9; O2SAT 97–100
--- OUTSIDE RECORDS SUMMARY | 2025-04-02 03:49 | XMS_ITS | Clinical Summary ---
Author Organization [facility] Address [address], [facility] [address] [place] [address] Phone Care Team Providers Care Salesperson Wigs Name Role Phone Logan Nielson MD Primary Care Provider [phone] Allergies No known active allergies Medications polyethylene [...] Date Job End Date Works for the [employer] Not on file Not on file Not [...] age to complete this topic Care Teams Salesperson Wigs Relationship Specialty Start Date End Date Logan Nielson MD PCP - General Internal Medicine 11/22/17
--- OUTSIDE RECORDS SUMMARY | 2025-04-02 03:49 | XMS_ITS | Encounter Summary ---
Author Organization [facility] - [facility] Address [address] [place] [address] Care Team Providers Care Science Intern Name Role Phone Logan Nielson MD Primary Care Provider [phone] Encounter Details Date Type Department Care Team (Late st Contact Info) Description 08/02/2022 Data Storage Group Message [facility] Patient Accounts [address] [place] [address] [facility] Provider Auto pay declined Social History Tobacco Use Types Packs/Day Years Used Date Smoking Tobacco: Never Assessed Sex and Gender Information Value Date Recorded Sex Assigned at Not on file Legal Sex Male 11:15 PM [employer] Gender Identity Not on file Sexual Orientation Not on file documented as of this encounter Plan of Treatment Not on file documented as of this encounter Visit Diagnoses Not on filedocumented in this encounter Care Teams Science Intern Relationship Specialty Start Date End Date Logan Nielson MD [address] [id number] PCP - General INTERNAL MEDICINE 06/16/22 documented as of this encounter
--- OUTSIDE RECORDS SUMMARY | 2025-04-02 03:50 | XMS_ITS | Clinical Summary ---
Author Organization [facility] Address [address] [place] [address] Care Team Providers Care Wax Pattern Repairer Name Role Phone Logan Nielson MD Primary Care Provider [phone] Medications LISINOPRIL 40 MG tabletIndicatio ns:Hypertension TAKE [...] on file Legal Sex Male 11:15 PM OPTOMECHANICAL TECHNICIAN Gender Identity Not on file Sexual Orientation Not on file Last Filed Vital Signs Vital Sign Reading Time Taken Comments Blood Pressure 124/88 06/01/2018 10:05 AM OPTOMECHANICAL TECHNICIAN Pulse 64 06/01/2018 10:05 AM OPTOMECHANICAL TECHNICIAN Temperature - - Respiratory Rate - - Oxygen Saturation - - Inhaled Oxygen Concentration - - Weight 147 kg (324 lb) 06/01/2018 10:05 AM OPTOMECHANICAL TECHNICIAN Height 182.9 cm (6') 06/01/2018 10:05 AM OPTOMECHANICAL TECHNICIAN Body Mass Index 43.94 06/01/2018 10:05 AM OPTOMECHANICAL TECHNICIAN Plan of Treatment Health Maintenance Due [...] Priority Date/Time Associated Diagnosis Comments COLONOSCOPY Routine OPTOMECHANICAL TECHNICIAN from Last 3 Months or Most Recently Relevant to Health Maintenance Results * Colonoscopy ( OPTOMECHANICAL TECHNICIAN) Narrative TOUCHWORKS TO EPIC CONVERSION - OPTOMECHANICAL TECHNICIAN Documented hx of procedure Procedure Note Deandra Aiken MD - 08/03/2018 Documented hx of procedure us Generic Conversion Md [facility] GI PROCEDURE ORDERABLES Final Result TOUCHWORKS TO EPIC CONVERSION from Last 3 Months or Most Recently Relevant to Health Maintenance Insurance [facility] Care Teams Wax Pattern Repairer Relationship Specialty Start Date End Date Logan Nielson MD [address] [phone] PCP - General INTERNAL MEDICINE 06/16/22
[2025-04-02] MEDS: SODIUM CHLORIDE 0.9% IV 1,000 ML 999 ML IV CONT (04:15)
[2025-04-02] MEDS: FAMOTIDINE 20 MG/2 ML VIAL IV PUSH (04:16)
[2025-04-02 04:30] LABS: Hematocrit 40.1 % (42.0-52.0); Hemoglobin 13.3 g/dL (14.0-18.0); Immature Granulocyte Percent A 0.1 % (0-0.5); Lymphocytes Absolute Auto 2.18 K/mm3 (0.9-3.2); Mean Corpuscular HGB Conc 33.2 g/dl (32-36); Mean Corpuscular Hemoglobin 30.9 pg (26-34); Mean Corpuscular Volume 93.3 fl (80-100); Nucleated Red Blood Cells Absolute Auto 0.000 K/mm3 (0.0-0.012); Nucleated Red Blood Cells Perc 0.0 % (0.0-0.2); Platelet Count Result 226 k/mm3 (150-375); Red Blood Count 4.30 M/mm3 (4.6-6.20); White Blood Count 7.1 K/mm3 (4.5-10.0)
[2025-04-02 04:45] LABS: Alanine Aminotransferase 20 U/L (6-50); Albumin Level 3.6 g/dL (3.5-5.1); Alkaline Phosphatase 81 U/L (38-126); Anion Gap 5 mmol/L (4-12); Aspartate Amino Transferase 31 U/L (17-59); Bilirubin,Total 0.8 mg/dL (0.2-1.3); Blood Urea Nitrogen 14 mg/dL (9-20); Calcium 8.4 mg/dL (8.4-10.2); Carbon Dioxide 28 mmol/L (22-30); Chloride 101 mmol/L (98-107); Estimated CRCL calculation 127 ml/min; Estimated Glomerular Filt Rate > 60; Glucose 99 mg/dL (65-110); Potassium 4.0 mmol/L (3.4-5.0); Sodium 134 mmol/L (137-145); Total Protein 6.7 g/dL (6.3-8.2)
--- NOTE | 2025-04-02 06:02 | ED.GENADULT ---
HPI - General Adult General Chief complaint: Allergic Reaction Stated complaint: possible allergic reaction Time Seen by Provider: 04/02/25 04:06 History of Present Illness HPI narrative: patient is 64-year-old gentleman who presents emergency department with chief complaint of hives patient reports that he was recently treated with antibiotics for swollen lymph nodes reports that he completed the antibiotics several days ago and reports that he started having itching over his extremities and also reports that he had a small feeling of swelling of his tongue patient reports no stridor reports that he was recently treated for lymphadenopathy in his neck Related Data Home Medications ?Medication ?Instructions ?Recorded ?Confirmed ?Last Taken ?Type acetaminophen 325 mg capsule 325 mg PO Q6H PRN Pain 07/19/19 03/22/25 Unknown History omega-3 fatty acids 1,000 mg 1,000 mg PO DAILY 07/19/19 03/22/25 Unknown History capsule (Fish Oil Concentrate) cholecalciferol (vitamin D3) 25 5,000 unit PO DAILY 03/06/20 03/22/25 Unknown History mcg (1,000 unit) capsule ibuprofen 200 mg tablet 200 mg PO Q6H PRN Pain 03/06/20 03/22/25 Unknown History omeprazole 20 mg capsule,delayed 20 mg PO DAILY 07/24/20 03/22/25 Unknown History release Probiotic 2 gummy BYMOUTH DAILY 02/07/23 03/22/25 Unknown History ketoconazole 2 % shampoo topical 09/20/24 03/22/25 Unknown History ketoconazole 2 % topical cream applic topical 09/20/24 03/22/25 Unknown History Allergies Allergy/AdvReac Type Severity Reaction Status Date / Time adhesive tape Allergy Intermediate Redness of Verified 04/02/25 03:47 Skin calamine Allergy Intermediate Hives Verified 04/02/25 03:47 clindamycin Allergy Intermediate Hives Verified 04/02/25 03:47 lisinopril Allergy Intermediate Hives Verified 04/02/25 03:47 niacin Allergy Intermediate Rash Verified 04/02/25 03:47 Review of Systems Review of Systems: A 10 system review of systems was completed on the patient and is negative except for what is stated in the HPI. Nursing and ancillary documentation was reviewed. [facility]LY [facility] Past Medical History Medical History Right sided facial pain Body mass index (BMI) 45.0-49.9, adult FRANZ (dyspnea on exertion) SOB (shortness of breath) Cervicalgia Og's palsy Facial nerve palsy Lymphedema Hx of pancreatitis Abdominal cramping Nausea and vomiting Acute pancreatitis Right elbow tendinitis Rectal bleeding Positional vertigo Periumbilical pain Onychomycosis Numbness of both lower extremities Intermittent diarrhea Plantar wart Cellulitis of left lower extremity Edema Superficial ulcer of lower extremity Skin lesions Plantar wart of left foot Encounter for preventive health examination Skin tag Venous insufficiency Chronic back pain Encounter for special screening examination for neoplasm of prostate Left flank pain Pedal edema Back spasm FHx: colon cancer BMI 40.0-44.9, adult Other specified abnormal findings of blood chemistry Bloating Family history of prostate cancer Colon polyps Pre-diabetes History of skin cancer Vitamin D deficiency Eczema Follow up Dermatographism History of angiotensin converting enzyme inhibitor (ANKIT-I) allergy BMI 39.0-39.9,adult Skin irritation Encounter for routine adult health examination without abnormal findings On oil expert drug therapy LAWRENCE on CPAP GERD (gastroesophageal reflux disease) Benign essential hypertension Surgical History Surgical History H/O arthroscopic knee surgery History of tonsillectomy and adenoidectomy H/O colonoscopy with polypectomy H/O local excision of skin lesion History of removal of cyst History of cholecystectomy Family History Family History Sibling Family history of seizure disorder Family history of rheumatic fever Family history of heart disease in male family member before age 55 Father Carcinoma of colon Malignant neoplasm of prostate Mother Family history of lung cancer Social History Social History Social History: the patient lives with his brother. He is single and has not had any children. The patient worked for the [employer]. Code status full code Smoking status: Never smoker Second hand tobacco smoke exposure: No Alcohol intake: current Substance use: never Substance use type: does not use Lack of Transportation: No Lack of Food: Never True Current Housing: I Have Housing Concerned About Future Housing: No Difficulty Paying Gas/Electric Bills: No Difficulty Paying for Meds: No Currently Unemployed: No Education: Master's Degree or Higher Difficulty w/ Childcare or Family Care: No Living arrangements: with family Occupation/Education: retired Gender identity (if verbalized by the patient): Male Spiritual care concerns: No Exam Narrative: GENERAL: Well-appearing, well-nourished, and in no acute distress. HEAD: Normocephalic, atraumatic. EYES: PERRLA and EOMI. ENT: Nares clear, no rhinorrhea or epistaxis. Mucous membranes moist. NECK: Supple. CHEST: Clear to auscultation. No respiratory distress. HEART: Regular rate and rhythm. No murmur heard. Normal peripheral pulses. ABDOMEN: Soft, nontender, nondistended, normal active bowel sounds. EXTREMITIES: Normal range of motion. No edema. SKIN: Warm, dry, urticaria. NEURO: No focal deficits. Alert and oriented x3. PSYCH: Normal mood and affect. Course Vital Signs Vital signs: Vital Signs Temperature 36.9 C 04/02/25 03:58 Pulse Rate 70 04/02/25 03:58 Respiratory Rate 18 04/02/25 03:58 Blood Pressure 159/82 H 04/02/25 03:58 Pulse Oximetry 99 04/02/25 03:58 Oxygen Delivery Room Air 04/02/25 03:58 Temperature 36.9 C 04/02/25 03:58 Pulse Rate 70 04/02/25 05:00 Respiratory Rate 15 04/02/25 05:00 Blood Pressure 148/78 H 04/02/25 05:00 Pulse Oximetry 99 04/02/25 05:00 Oxygen Delivery Room Air 04/02/25 03:58 Medical Decision Making [facility] Narrative Medical decision making narrative: differential diagnosis includes urticaria, allergic reaction, patient shows no signs of airway compromise the the triggering event patient given IV steroids Benadryl and Pepcid the patient is feeling somewhat better at this time patient will be discharged home on a pulse dose steroids and should follow-up with his primary care provider Vital Signs Vital Signs: Vital Signs Temperature 36.9 C 04/02/25 03:58 Pulse Rate 70 04/02/25 03:58 Respiratory Rate 18 04/02/25 03:58 Blood Pressure 159/82 H 04/02/25 03:58 Pulse Oximetry 99 04/02/25 03:58 Oxygen Delivery Room Air 04/02/25 03:58 Temperature 36.9 C 04/02/25 03:58 Pulse Rate 70 04/02/25 05:00 Respiratory Rate 15 04/02/25 05:00 Blood Pressure 148/78 H 04/02/25 05:00 Pulse Oximetry 99 04/02/25 05:00 Oxygen Delivery Room Air 04/02/25 03:58 Lab Data 04/02/25 04:24 04/02/25 04:24 Labs: Lab Results 04/02/25 Range/Units 04:24 WBC 7.1 (4.5-10.0) K/mm3 RBC 4.30 L (4.6-6.20) M/mm3 Hgb 13.3 L (14.0-18.0) g/dL Hct 40.1 L (42.0-52.0) % MCV 93.3 (80-100) fl MCH 30.9 (26-34) pg MCHC 33.2 (32-36) g/dl RDW 13.3 (11.5-14.5) % Plt Count 226 (150-375) k/mm3 MPV 8.7 (7.4-10.4) fl Immature Gran % (Auto) 0.1 (0-0.5) % Neut % (Auto) 46.6 (45.5-73.1) % Lymph % (Auto) 30.8 (18.3-44.2) % [place] % (Auto) 13.8 H (2.6-8.5) % Eos % (Auto) 8.3 H (0-4.4) % Baso % (Auto) 0.4 (0.2-1.2) % Lymph # (Auto) 2.18 (0.9-3.2) K/mm3 [place] # (Auto) 1.0 H (0.1-0.6) K/mm3 Eos # (Auto) 0.6 H (0-0.3) K/mm3 Baso # (Auto) 0.0 (0.0-0.1) K/mm3 Abs Immat Gran (auto) 0.01 (0.00-0.031) K/mm3 Absolute Neuts (auto) 3.3 (1.3-6.7) K/mm3 Absolute Nucleated RBC 0.000 (0.0-0.012) K/mm3 Nucleated RBC % 0.0 (0.0-0.2) % Sodium 134 L (137-145) mmol/L Potassium 4.0 (3.4-5.0) mmol/L Chloride 101 (98-107) mmol/L Carbon Dioxide 28 (22-30) mmol/L Anion Gap 5 (4-12) mmol/L BUN 14 (9-20) mg/dL Creatinine 0.74 (0.7-1.3) mg/dL Estim Creat Clear Calc 127 ml/min Estimated GFR > 60 (59 - ) Glucose 99 (65-110) mg/dL Calcium 8.4 (8.4-10.2) mg/dL Total Bilirubin 0.8 (0.2-1.3) mg/dL AST 31 (17-59) U/L ALT 20 (6-50) U/L Alkaline Phosphatase 81 (38-126) U/L Total Protein 6.7 (6.3-8.2) g/dL Albumin 3.6 (3.5-5.1) g/dL Discharge Plan Discharge Clinical Impression: Urticaria Patient Disposition: Home Condition: Stable Instructions: Antibiotic Form, Urticaria (ED) Patient Language: Montenegrin Prescriptions: New prednisone 20 mg tablet 40 mg PO DAILY 5 Days Qty: 10 0RF No Action acetaminophen 325 mg capsule 325 mg PO Q6H PRN (Reason: Pain) omega-3 fatty acids [Fish Oil Concentrate] 1,000 mg capsule 1,000 mg PO DAILY Probiotic 2 gummy BYMOUTH DAILY ketoconazole 2 % cream topical ketoconazole 2 % shampoo topical cholecalciferol (vitamin D3) 25 mcg (1,000 unit) capsule 5,000 unit PO DAILY ibuprofen 200 mg tablet 200 mg PO Q6H PRN (Reason: Pain) omeprazole 20 mg capsule,delayed release(DR/EC) 20 mg PO DAILY cyclobenzaprine 10 mg tablet See Rx Instructions .ROUTE .COMPLEX PRN (Reason: muscle spasm) Qty: 30 2RF Dose Instruction: TAKE 1 TABLET BY MOUTH AT BEDTIME Rx Instructions: TAKE 1 TABLET BY MOUTH AT BEDTIME PRN; doxycycline hyclate 100 mg tablet 100 mg PO BID Qty: 20 0RF amoxicillin 875 mg tablet 875 mg PO Q12H Qty: 20 0RF gabapentin 300 mg capsule See Rx Instructions .ROUTE .COMPLEX Qty: 270 1RF Dose Instruction: TAKE ONE CAPSULE BY MOUTH THREE TIMES DAILY Rx Instructions: TAKE ONE CAPSULE BY MOUTH THREE TIMES DAILY potassium chloride 10 mEq capsule, extended release See Rx Instructions .ROUTE .COMPLEX Qty: 90 0RF Dose Instruction: TAKE 1 CAPSULE BY MOUTH EVERY DAY Rx Instructions: TAKE 1 CAPSULE BY MOUTH EVERY DAY bumetanide 1 mg tablet See Rx Instructions .ROUTE .COMPLEX Qty: 90 0RF Dose Instruction: TAKE 1 TABLET BY MOUTH EVERY DAY Rx Instructions: TAKE 1 TABLET BY MOUTH EVERY DAY telmisartan 80 mg tablet See Rx Instructions .ROUTE .COMPLEX Qty: 90 0RF Dose Instruction: TAKE 1 TABLET BY MOUTH EVERY DAY. STOP CANDESARTAN Rx Instructions: TAKE 1 TABLET BY MOUTH EVERY DAY. STOP CANDESARTAN Follow-up/Referrals: Logan Nielson MD [Primary Care Provider, Internal Medicine] Time of Disposition: 06:07
== END 2025-04-02 06:25 | disposition home or self-care (01) ==
PROVIDERS: Emergency Provider Emergency Medicine; PCP Internal Medicine
DX: L50.9 Urticaria, unspecified (principal); Z85.828 Personal history of other malignant neoplasm of skin; G47.30 Sleep apnea, unspecified; K21.9 Gastro-esophageal reflux disease without esophagitis; I10 Essential (primary) hypertension
CPT/HCPCS: 36415; 80053; 85025; 96361; 96374; 96375; 99284; J1200; J2919; J7030